=== PATIENT | female | born 1995 | race Caucasian/White ===

== ENCOUNTER 2020-05-04 22:21 | Emergency (ER) | payer SELFPAY ==
--- NOTE | ~2020-05-04 | CT_ITS ---
EXAMINATION: CT abdomen pelvis w con DATE: 05/05/2020 00:13 INDICATION: Nausea and vomiting. Diarrhea. Blood in stool. TECHNIQUE: Computed tomography (CT) of the abdomen and pelvis was performed with 100 mL Omnipaque 350 intravenous contrast. Automated exposure control and iterative reconstruction technique were employe d. The dose-length product was 350.20 mGy-cm. COMPARISON: None. FINDINGS: The visualized portions of the lung bases are clear without pneumonia or pleural effusion. The heart size is normal. No pericardial effusion. The liver, gallbladder, spleen, pancreas, adrenal glands, and left kidney are normal. There is a 5 mm cyst in right kidney. There are no dilated loops of bowel. The appendix is normal. There are no pathologically enlarged lymph nodes. There is trace pe lvic ascites, likely physiologic. There is mild lumbar spondylosis. IMPRESSION: 1. No etiology for the patient's symptoms. Reviewed, dictated and finalized at location B. [employer]
[2020-05-04 22:26] VITALS: BP 113/92; PULSE 73; RESP 15; TEMP 36.4; O2SAT 99
--- NOTE | 2020-05-04 22:40 | ED.ABDPAIN ---
HPI - Abdominal Pain General Chief Complaint: Abdominal Pain Stated Complaint: abdominal pain Time Seen by Provider: 05/04/20 22:40 Source: patient and family Mode of arrival: ambulatory Limitations: no limitations History of Present Illness HPI narrative: The patient is a 24 yo female with a hx of endometriosis, who presents for evaluation of abdominal pain and diarrhea. Pt reporting diarrhea with small amount of blood present over past 48 hours. No mucus present. Pt did have anal sex with her and has had worsened bleeding tonight. She is reporting rectal pain. Pt with vomiting three days ago and today; reporting constant nausea. Pt reports feeling febrile with chills. Pt denies chest pain, cough, dyspnea, weakness or dizziness. No hematuria or dysuria. Pt currently menstruating. No lower abdominal cramping or pain. Pt with history of chlamydia as as teenager; treated. No current vaginal discharge. Related Data Allergies Allergy/AdvReac Type Severity Reaction Status Date / Time latex Allergy Swelling Verified 05/04/20 23:41 Review of Systems Review of Systems: Narrative: CONSTITUTIONAL: Reports feeling febrile with chills ENT: Denies rhinorrhea, congestion, sore throat, or otalgia. CARDIOVASCULAR: Denies chest pain, palpitations, or edema. RESPIRATORY: Denies cough or dyspnea. GASTROINTESTINAL: Reporting abd pain, nausea and vomiting GENITOURINARY: Denies dysuria or hematuria. SKIN: Denies rash or itching. MUSCULOSKELETAL: Denies back pain, joint pain, or myalgia. NEUROLOGIC: Denies headache, numbness, or weakness. [facility] Past Medical History Medical History (Updated 05/05/20 @ 00:53 by Court Bess MD) Endometriosis Surgical History Surgical History (Updated 05/04/20 @ 22:57 by Court Bess MD) No pertinent past surgical history Social History Social History (Updated 05/04/20 @ 22:57 [address] Court Bess MD) Smoking status: Never smoker Substance use: never Gender identity (if verbalized by the patient): Female Exam Narrative: Exam Narrative: GENERAL: Awake, alert, conversant HEAD: Normocephalic, atraumatic. EYES: PERRLA and EOMI. ENT: Nares clear, no rhinorrhea or epistaxis. Mucous membranes moist. NECK: Supple. CHEST: No respiratory distress, breathing even and non labored HEART: Regular rate, sinus rhythm : Rectal exam: no fissures, mild tenderness, no ecchymoses, no melena ABDOMEN:Non distended, mild diffuse tenderness all four quadrants, no rebound, rigidity or guarding EXTREMITIES: Normal range of motion. No edema. SKIN: Warm, dry, no rash. NEURO:No focal deficits. Alert and oriented x3 Course Vital Signs Vital signs: Vital Signs Temperature 36.4 C 05/04/20 22:26 Pulse Rate 73 05/04/20 22:26 Respiratory Rate 15 05/04/20 22:26 Blood Pressure 113/92 H 05/04/20 22:26 Pulse Oximetry 99 05/04/20 22:26 Temperature 36.4 C 05/04/20 22:26 Pulse Rate 73 05/04/20 22:26 Respiratory Rate 15 05/04/20 22:26 Blood Pressure 113/92 H 05/04/20 22:26 Pulse Oximetry 99 05/04/20 22:26 MDM - Abdominal Pain MDM Narrative Medical decision making narrative: Patient presented for evaluation of abdominal pain. She has had some associated vomiting and diarrhea with some blood present in the stool. Patient also with recent anal intercourse from spouse that seem to exacerbate symptoms. Patient was concerned she perhaps had a tear or rectal injury thus she sought care in our emergency department. At time of assessment, ABCs are intact. Vital signs are stable. Abdominal exam notable for mild, diffuse tenderness throughout, no severe tenderness, no rigidity, rebound or guarding. Rectal exam shows no fissures, tears. No gross bloody discharge. Patient currently menstruating, second day of cycle which she states is very heavy, not having any other urinary symptoms, I did speak with the patient regarding obtaining a urinary catheterization for I more reliable urinal
[2020-05-04] MEDS: SODIUM CHLORIDE 0.9% IV 1,000 ML 999 ML IV CONT (23:36)
[2020-05-04 23:38] LABS: Basophils Percent Auto 0.2 % (0.2-1.2); Eosinophils Absolute Auto 0.1 K/mm3 (0-0.3); Eosinophils Percent Auto 0.6 % (0-4.4); Hematocrit 40.5 % (37.0-47.0); Hemoglobin 13.9 g/dL (12.0-15.0); Immature Granulocyte Absolute 0.02 K/mm3 (0.00-0.031); Immature Granulocyte Percent A 0.2 % (0-0.5); Lymphocytes Absolute Auto 2.38 K/mm3 (0.9-3.2); Lymphocytes Percent Auto 25.1 % (18.3-44.2); Mean Corpuscular HGB Conc 34.3 g/dl (32-36); Mean Corpuscular Hemoglobin 31.1 pg (26-34); Mean Corpuscular Volume 90.6 fl (80-100); Mean Platelet Volume 10.3 fl (7.4-10.4); Monocytes Absolute Auto 0.6 K/mm3 (0.1-0.6); Monocytes Percent Auto 5.8 % (2.6-8.5); Neutrophils Absolute Auto 6.5 K/mm3 (1.3-6.7); Neutrophils Percent Auto 68.1 % (45.5-73.1); Platelet Count Result 321 k/mm3 (150-375); Red Blood Count 4.47 M/mm3 (4.2-5.4); Red Cell Distribution Width 12.5 % (11.5-14.5); White Blood Count 9.5 K/mm3 (4.5-10.0)
[2020-05-04] MEDS: MORPHINE SULFATE (*CRX) 4 MG/ML INJ IV PUSH (23:38)
[2020-05-04] MEDS: ONDANSETRON INJ 4 MG/2 ML VIAL IV PUSH (23:38)
[2020-05-04 23:52] LABS: Alanine Aminotransferase 20 U/L (4-35); Albumin Level 4.5 g/dL (3.5-5.1); Alkaline Phosphatase 73 U/L (38-126); Anion Gap 12 mmol/L (8-16); Aspartate Amino Transferase 24 U/L (14-36); Bilirubin,Total 0.4 mg/dL (0.2-1.3); Blood Urea Nitrogen 9 mg/dL (7-17); Calcium 9.5 mg/dL (8.4-10.2); Carbon Dioxide 22 mmol/L (22-30); Chloride 106 mmol/L (98-107); Estimated CRCL calculation 81 ml/min; Estimated Glomerular Filt Rate > 60; Glucose 104 mg/dL (65-105); Lipase 60 U/L (23-300); Potassium 3.5 mmol/L (3.4-5.0); Sodium 140 mmol/L (137-145)
[2020-05-05 00:22] LABS: Appearance Urine Turbid (Clear); Color Urine Red (Yellow)
[2020-05-05 00:23] LABS: Glucose Urine UA Unable to determine mg/dL (Negative); Ketones Urine Unable to determine mg/dL (Negative); Protein Urine Unable to determine mg/dL (Negative); pH Urine Unable to determine (5.0-9.0)
[2020-05-05 00:24] LABS: Add Urine Microscopic? YES; Bilirubin Urine Unable to determine (Negative); Blood Urine 3+ (Negative); Leukocyte Esterase Ur Unable to determine LEU/UL (Negative); Nitrate Urine Unable to determine (Negative); Urobilinogen Urine Unable to determine mg/dL (<2.0)
[2020-05-05 00:25] LABS: RBC Urine >75 /hpf (0-2)
[2020-05-05 00:32] LABS: Bacteria Urine Unable to determine /hpf; Specific Grav Ur 1.021 (1.001-1.035); Squamous Epithelial Cell Urine Unable to determine /hpf (Few)
[2020-05-05 01:13] VITALS: BP 116/78; PULSE 73; RESP 16; O2SAT 97
== END 2020-05-05 01:10 | disposition home or self-care (01) ==
PROVIDERS: Emergency Provider Emergency Medicine
DX: K52.9 Noninfective gastroenteritis and colitis, unspecified (principal); N80.9 Endometriosis, unspecified
CPT/HCPCS: 36415; 74177; 80053; 81001; 81025; 83690; 85025; 87077; 87086; 87088; 96361; 96374; 96375; 99284; J2270; J2405; J7030; Q9967

== ENCOUNTER 2020-06-13 00:22 | Emergency (ER) | payer SELFPAY ==
[2020-06-13 00:26] VITALS: BP 110/97; PULSE 86; RESP 16; TEMP 36.7; O2SAT 99
[2020-06-13] MEDS: predniSONE 20 MG TABLET 60 MG PO (00:41)
[2020-06-13] MEDS: FAMOTIDINE 20 MG TABLET PO (00:41)
[2020-06-13] MEDS: diphenhydrAMINE HCl CAP 25 MG CAPSULE PO (00:41)
--- NOTE | 2020-06-13 00:47 | ED.ALLEREA ---
HPI - Allergic Reaction General Chief complaint: Allergic Reaction Stated complaint: i think i am having an allergic rxn Time Seen by Provider: 06/13/20 00:27 Source: patient Mode of arrival: ambulatory Limitations: no limitations History of Present Illness HPI narrative: This patient is a 25 year old female who presents for evaluation of rash. She developed rash to her arms, legs and torso 1 week ago. She reports she has had a rash to face for 3 days. She describes the rash as itching and burning. She reports taking antibiotics over 1 months ago, but she had finished the antibiotics when she developed the rash. She has been using oatmeal cream and benadryl. She denies any new exposures. She does reports she recently moved 3 days ago . Her mother reports her previous residence was horrible . She denies fever, chills, sore throat, runny nose, difficulty breath or oral lesions. Related Data Allergies Allergy/AdvReac Type Severity Reaction Status Date / Time latex Allergy Swelling Verified 05/04/20 23:41 Review of Systems Review of Systems: All systems reviewed & are unremarkable except as noted in HPI and below PMFSH Past Medical History Medical History (Updated 06/13/20 @ 00:54 by Yaz Hugo MD) Endometriosis Surgical History Surgical History (Updated 05/04/20 @ 22:57 [address] Court Bess MD) No pertinent past surgical history Social History Social History (Updated 05/04/20 @ 22:57 by Court Bess MD) Smoking status: Never smoker Substance use: never Gender identity (if verbalized by the patient): Female Exam Const: General: no acute distress and alert Orientation/consciousness: patient oriented x3 HENMT: Face and sinus: normal facial exam and face symmetric Eyes: EOM: EOMs intact bilaterally Resp: Effort & Inspection: normal respiratory effort and no retractions Auscultation: clear to auscultation bilaterally Cardio: Rate: regular rate Rhythm: regular rhythm Heart sounds: no murmurs GI: GI Palp: Yes Soft to palpation, No Tenderness to palpation present (GI) and No Guarding due to palpation present (GI) Auscultation: normal bowel sounds Skin: Other: rash present Neuro: General: patient oriented x3 and moves all extremities Extrem: General: no pedal edema Course Reevaluation(s) Reevaluation #1: Patient has rash to her face. She has not airway issues. I discussed with the plan to treat with steroid cream and she will need to follow up with PCP if rash continues. Date: 06/13/20 Time: 02:00 Vital Signs Vital signs: Vital Signs Temperature 98.0 F 06/13/20 00:26 Pulse Rate 86 06/13/20 00:26 Respiratory Rate 16 06/13/20 00:26 Blood Pressure 110/97 H 06/13/20 00:26 Pulse Oximetry 99 06/13/20 00:26 Temperature 98.2 F 06/13/20 02:40 Pulse Rate 79 06/13/20 02:40 Respiratory Rate 16 06/13/20 02:40 Blood Pressure 116/75 06/13/20 02:40 Pulse Oximetry 99 06/13/20 02:40 Discharge Plan Discharge Clinical Impression: Dermatitis, unspecified Patient Disposition: Home, Self-Care Condition: Stable Instructions: Antibiotic Form, Acute Rash (ED) Additional Instructions: Monitor what could be causing your rash. Take allergy medication such as benadryl , claritin or zyrtec for itching and rash. Use steroid cream. REturn if you develop mouth or tongue swelling, difficulty breathing or worsening. symptoms. Prescriptions: New hydrocortisone 2.5 % cream 1 applic topical BID Qty: 28 RF: 0 famotidine [Pepcid] 20 mg tablet 20 mg PO DAILY Qty: 14 RF: 0 prednisone 50 mg tablet 50 mg PO DAILY Qty: 5 RF: 0 loratadine [Claritin] 10 mg tablet 10 mg PO DAILY PRN (Reason: allergy symptoms) Qty: 10 RF: 0 No Action metronidazole [Flagyl] 500 mg tablet 500 mg PO Q12H 5 Days Qty: 10 RF: 0 ciprofloxacin HCl 500 mg tablet 500 mg PO Q12H 5 Days Qty: 10 RF: 0 metoclopramide HCl [Reglan] 10 mg
[2020-06-13 02:40] VITALS: BP 116/75; PULSE 79; RESP 16; TEMP 36.8; O2SAT 99
== END 2020-06-13 02:42 | disposition home or self-care (01) ==
PROVIDERS: Emergency Provider General Practice
DX: L30.9 Dermatitis, unspecified (principal); N80.9 Endometriosis, unspecified
CPT/HCPCS: 99283; A9270; J7512

== ENCOUNTER 2020-06-24 21:53 | Emergency (ER) | payer SELFPAY ==
[2020-06-24 21:55] VITALS: BP 128/71; PULSE 76; RESP 18; TEMP 36.8; O2SAT 100
--- NOTE | 2020-06-24 22:44 | ED.GENADULT ---
HPI - General Adult General Chief complaint: Wound/Laceration Stated complaint: possible mrsa Time Seen by Provider: 06/24/20 22:34 Source: patient Mode of arrival: ambulatory Limitations: no limitations History of Present Illness HPI narrative: Patient is 25 years old white female presents with a pimple on the right lower quadrant started 2 days ago. Patient was able to squeeze the pimple and telling me that she got a lot of green pus coming out of it. Patient denies fever, chills, nausea, vomiting. Patient reported that her was diagnosed of MRSA weeks ago. Related Data Allergies Allergy/AdvReac Type Severity Reaction Status Date / Time latex Allergy Swelling Verified 05/04/20 23:41 Review of Systems Review of Systems: Narrative: CONSTITUTIONAL: Denies fever, chills, or sweats. EYES: Denies visual changes, redness, or discharge. ENT: Denies rhinorrhea, congestion, sore throat, or otalgia. CARDIOVASCULAR: Denies chest pain, palpitations, or edema. RESPIRATORY: Denies cough or dyspnea. GASTROINTESTINAL: Denies abdominal pain, nausea, vomiting, or diarrhea. GENITOURINARY: Denies dysuria or hematuria. SKIN: Denies rash or itching. MUSCULOSKELETAL: Denies back pain, joint pain, or myalgia. NEUROLOGIC: Denies headache, numbness, or weakness. PSYCHIATRIC: Denies anxiety or depression. PMFSH Past Medical History Medical History Endometriosis Surgical History Surgical History No pertinent past surgical history Social History Social History Smoking status: Never smoker Substance use: never Gender identity (if verbalized by the patient): Female Exam Narrative: Exam Narrative: General appearance: Well-developed, well-nourished Skin: Normal color, right lower quadrant showed a 2 mm pimple, surrounded by 1 cm erythema, no subcutaneous induration, no fluctuation, slightly tender. Chest and respiratory: Airway patent, no respiratory distress, no accessory muscle use Heart: Regular rate/rhythm Abdomen: Soft, nontender, no organomegaly, quiet bowel sounds Neurologic: Alert and oriented ?3, Course Course Emergency Course: Stable Vital Signs Vital signs: Vital Signs Temperature 36.8 C 06/24/20 21:55 Pulse Rate 76 06/24/20 21:55 Respiratory Rate 18 06/24/20 21:55 Blood Pressure 128/71 06/24/20 21:55 Pulse Oximetry 100 06/24/20 21:55 Temperature 36.8 C 06/24/20 21:55 Pulse Rate 76 06/24/20 21:55 Respiratory Rate 18 06/24/20 21:55 Blood Pressure 128/71 06/24/20 21:55 Pulse Oximetry 100 06/24/20 21:55 Medical Decision Making MDM Narrative Medical decision making narrative: Patient had a small boil and was able to squeeze it and got all the pus out of it. Currently 1 cm cellulitis at the right lower abdomen. Differential Diagnosis Differential Diagnosis: Cellulitis Vital Signs Vital Signs: Vital Signs Temperature 36.8 C 06/24/20 21:55 Pulse Rate 76 06/24/20 21:55 Respiratory Rate 18 06/24/20 21:55 Blood Pressure 128/71 06/24/20 21:55 Pulse Oximetry 100 06/24/20 21:55 Temperature 36.8 C 06/24/20 21:55 Pulse Rate 76 06/24/20 21:55 Respiratory Rate 18 06/24/20 21:55 Blood Pressure 128/71 06/24/20 21:55 Pulse Oximetry 100 06/24/20 21:55 Critical Care Time Critical Care Time Critical Care Time: No Discharge Plan Discharge Clinical Impression: Bacterial skin infection Patient Disposition: Home, Self-Care Condition: Stable Instructions: Cellulitis (ED) Additional Instructions
== END 2020-06-24 23:07 | disposition home or self-care (01) ==
PROVIDERS: Emergency Provider Emergency Medicine
DX: L03.311 Cellulitis of abdominal wall (principal); B96.89 Other specified bacterial agents as the cause of diseases classified elsewhere; N80.9 Endometriosis, unspecified
CPT/HCPCS: 99283

== ENCOUNTER 2020-07-09 13:15 | Emergency (ER) | payer SELFPAY ==
[2020-07-09 13:21] VITALS: BP 133/63; PULSE 76; RESP 18; TEMP 36.3; O2SAT 100
[2020-07-09] MEDS: diazePAM (*CRX) 5 MG TABLET PO (13:34)
[2020-07-09] MEDS: IBUPROFEN 600 MG TABLET PO (13:34)
--- NOTE | 2020-07-09 13:39 | ED.GENADULT ---
HPI - General Adult General Chief complaint: Wound/Laceration Stated complaint: Wound Infection Time Seen by Provider: 07/09/20 13:27 Source: patient and old records reviewed Mode of arrival: ambulatory Limitations: no limitations History of Present Illness HPI narrative: Patient is a 25-year-old female who presents with wound to the right lower abdomen has been present for over a week was seen in the in the emergency department evaluated started on antibiotics notes that she took the antibiotics completed them however the lesion has increased in size patient notes moderate aching pain worse with touch and activity patient presents per private vehicle in no distress upon arrival Related Data Allergies Allergy/AdvReac Type Severity Reaction Status Date / Time latex Allergy Swelling Verified 07/09/20 13:30 Review of Systems Review of Systems: All systems reviewed & are unremarkable except as noted in HPI and below PMFSH Past Medical History Medical History Endometriosis Surgical History Surgical History No pertinent past surgical history Social History Social History Smoking status: Never smoker Substance use: never Gender identity (if verbalized by the patient): Female Exam Narrative: Exam Narrative: GENERAL: Well-appearing, well-nourished, and in no acute distress. HEAD: Normocephalic, atraumatic. EYES: PERRLA and EOMI. ENT: Nares clear, no rhinorrhea or epistaxis. Mucous membranes moist. CHEST: Clear to auscultation. No respiratory distress. No wheezes rales or rhonchi HEART: Regular rate and rhythm. No murmur heard. Normal peripheral pulses. ABDOMEN: Soft, nontender, nondistended EXTREMITIES: Normal range of motion. No edema. SKIN: Warm, dry, no rash. Patient with 3 cm red tender swollen lesion right lower abdomen along the belt line NEURO: No focal deficits. Alert and oriented x3. PSYCH: Normal mood and affect. Course Course Emergency Course: Patient had I&D of abscess in the emergency department wound cultures were obtained there were no complications with the procedure patient will follow with primary care given reasons to return Vital Signs Vital signs: Vital Signs Temperature 97.4 F L 07/09/20 13:21 Pulse Rate 76 07/09/20 13:21 Respiratory Rate 18 07/09/20 13:21 Blood Pressure 133/63 07/09/20 13:21 Pulse Oximetry 100 07/09/20 13:21 Temperature 97.4 F L 07/09/20 13:21 Pulse Rate 76 07/09/20 13:21 Respiratory Rate 18 07/09/20 13:21 Blood Pressure 133/63 07/09/20 13:21 Pulse Oximetry 100 07/09/20 13:21 Procedures Abscess I/D abdomen: Date of Incision: 07/09/20 Time of Incision: 14:44 Side (if applicable): right Local Anesthetic: lidocaine 1% Technique: incised with #11 blade Amount of fluid expressed (mL): 4 Irrigation: Yes Packing used?: iodoform I&D Results: Pus and Blood Complications: pain Medical Decision Making MDM Narrative Medical decision making narrative: Patient in the room no distress Vital Signs Vital Signs: Vital Signs Temperature 97.4 F L 07/09/20 13:21 Pulse Rate 76 07/09/20 13:21 Respiratory Rate 18 07/09/20 13:21 Blood Pressure 133/63 07/09/20 13:21 Pulse Oximetry 100 07/09/20 13:21 Temperature 97.4 F L 07/09/20 13:21 Pulse Rate 76 07/09/20 13:21 Respiratory Rate 18 07/09/20 13:21 Blood Pressure 133/63 07/09/20 13:21 Pulse Oximetry 100 07/09/20 13:21 Discharge Plan Discharge Clinical Impression: Abscess Patient Disposition: Home, Self-Care Condition: Stable Instructions: Antibiotic Form, Abscess (ED) Additional Instructions: Follow up with primary care in the next 2-3 days for re-evaluation and packing removal if placed take antibiotics as
[2020-07-09] MEDS: LIDOCAINE HCL 1% LOCAL INJ 20 ML VIAL (14:53)
[2020-07-09 15:07] VITALS: BP 125/65; PULSE 72; RESP 16; O2SAT 98
== END 2020-07-09 15:05 | disposition home or self-care (01) ==
PROVIDERS: Emergency Provider Emergency Medicine
DX: L02.211 Cutaneous abscess of abdominal wall (principal); N80.9 Endometriosis, unspecified
CPT/HCPCS: 10061; 87070; 87075; 87147; 87186; 87205; 99283; A9270

== ENCOUNTER 2020-11-16 10:36 | Emergency (ER) | payer SELFPAY ==
--- NOTE | ~2020-11-16 | US_ITS ---
EXAMINATION: US OB <=14 wk fetus w TV DATE: 11/16/2020 11:41 INDICATION: Right adnexal pain and vaginal bleeding during first trimester . TECHNIQUE: Real-time pelvic ultrasound utilizing both a transvaginal and transabdominal probe was pe rformed. The interpreting radiologist was not present for the study. COMPARISON: CT dated 05/05/2020 FINDINGS: The uterus measures 8.9 x 6.4 x 3.8 cm. Partial septate uterus better appreciated on prior CT. The en dometrial complex measures 13 mm in thickness at the left side of the fundus and 12 mm at the right s ester of the fundus. No evident intrauterine gestational sac identified. The right ovary measures 2.3 x 1.8 x 1.8 cm. The left ovary measures 2.3 x 1.5 x 1.6 cm. There is no free fluid in the pelvis. IMPRESSION: 1. Anatomic variant partial septate uterus with no evident intrauterine gestational sac. Differential would include early , failed or less likely ectopic . Correlate with ser ial beta-hCG levels. Reviewed, dictated and finalized at location A. IMPRESSION: 1. Anatomic variant partial septate uterus with no evident intrauterine gestati onal sac. Differential would include early , failed or less likely ectopic . Correlate with serial beta-hCG levels.
[2020-11-16 10:40] VITALS: BP 128/79; PULSE 69; RESP 16; TEMP 36.2; O2SAT 100
[2020-11-16] MEDS: SODIUM CHLORIDE 0.9% IV 1,000 ML 999 ML IV CONT (11:04)
[2020-11-16 11:13] LABS: Basophils Percent Auto 0.3 % (0.2-1.2); Eosinophils Absolute Auto 0.1 K/mm3 (0-0.3); Eosinophils Percent Auto 1.9 % (0-4.4); Hematocrit 43.2 % (37.0-47.0); Hemoglobin 14.3 g/dL (12.0-15.0); Immature Granulocyte Absolute 0.03 K/mm3 (0.00-0.031); Immature Granulocyte Percent A 0.4 % (0-0.5); Lymphocytes Absolute Auto 2.26 K/mm3 (0.9-3.2); Lymphocytes Percent Auto 30.7 % (18.3-44.2); Mean Corpuscular HGB Conc 33.1 g/dl (32-36); Mean Corpuscular Hemoglobin 30.4 pg (26-34); Mean Corpuscular Volume 91.7 fl (80-100); Mean Platelet Volume 10.5 fl (7.4-10.4); Monocytes Absolute Auto 0.4 K/mm3 (0.1-0.6); Monocytes Percent Auto 5.8 % (2.6-8.5); Neutrophils Absolute Auto 4.5 K/mm3 (1.3-6.7); Neutrophils Percent Auto 60.9 % (45.5-73.1); Platelet Count Result 299 k/mm3 (150-375); Red Blood Count 4.71 M/mm3 (4.2-5.4); Red Cell Distribution Width 12.9 % (11.5-14.5); White Blood Count 7.4 K/mm3 (4.5-10.0)
[2020-11-16 11:18] LABS: Alanine Aminotransferase 17 U/L (4-35); Albumin Level 4.7 g/dL (3.5-5.1); Alkaline Phosphatase 50 U/L (38-126); Anion Gap 10 mmol/L (8-16); Aspartate Amino Transferase 24 U/L (14-36); Bilirubin,Total 0.3 mg/dL (0.2-1.3); Blood Urea Nitrogen 9 mg/dL (7-17); Calcium 9.6 mg/dL (8.4-10.2); Carbon Dioxide 24 mmol/L (22-30); Chloride 105 mmol/L (98-107); Estimated CRCL calculation 84 ml/min; Estimated Glomerular Filt Rate > 60; Glucose 71 mg/dL (65-105); Potassium 3.9 mmol/L (3.4-5.0); Sodium 139 mmol/L (137-145)
[2020-11-16 11:20] LABS: Add Urine Microscopic? YES; Appearance Urine Clear (Clear); Bacteria Urine Trace /hpf; Bilirubin Urine Negative (Negative); Blood Urine 2+ (Negative); Color Urine Yellow (Yellow); Glucose Urine UA Negative (Negative); Ketones Urine Negative (Negative); Leukocyte Esterase Ur Negative LEU/UL (Negative); Mucus Urine Rare /lpf; Nitrate Urine Negative (Negative); Protein Urine Negative (Negative); RBC Urine 0-2 /hpf (0-2); Specific Grav Ur 1.014 (1.001-1.035); Squamous Epithelial Cell Urine Many /hpf (Few); Urobilinogen Urine Negative mg/dL (<2.0); WBC Urine 0-3 /hpf
[2020-11-16 11:34] LABS: Beta HCG Quantitative 115.16 mIU/ML
--- NOTE | 2020-11-16 13:35 | PC.NURSE ---
called lab and talked to Arleen, she confirmed we did not need the confirmation tube on pt. Segundo Bejarano was notified.
--- NOTE | 2020-11-16 13:46 | ED.GENADULT ---
HPI - General Adult General Chief complaint: Vaginal Bleeding Stated complaint: + test/Abd Pain and bleeding Time Seen by Provider: 11/16/20 10:40 Source: patient and RN notes reviewed Mode of arrival: ambulatory Limitations: no limitations History of Present Illness HPI narrative: Patient is a 25-year-old female who presents with vaginal bleeding and cramping which has been present for the last 2 weeks patient notes positive test at home patient notes history of G3, P0. Patient notes history of ectopic with oophorectomy. Patient does not currently have a milk bottler. Patient's been having some light bleeding and cramping is noted since the onset of symptoms. Patient denies fever vomiting or other concerns at this time on arrival she does not appear uncomfortable or distressed Related Data Allergies Allergy/AdvReac Type Severity Reaction Status Date / Time latex Allergy Swelling Verified 11/16/20 10:54 Review of Systems Review of Systems: All systems reviewed & are unremarkable except as noted in HPI and below PMFSH Past Medical History Medical History (Updated 11/16/20 @ 14:02 by Naresh Bejarano PA-C) Ectopic Endometriosis Surgical History Surgical History H/O unilateral oophorectomy No pertinent past surgical history Social History Social History Smoking status: Never smoker Substance use: never Gender identity (if verbalized by the patient): Female Exam Narrative: Exam Narrative: GENERAL: Well-appearing, well-nourished, and in no acute distress. HEAD: Normocephalic, atraumatic. EYES: PERRLA and EOMI. ENT: Nares clear, no rhinorrhea or epistaxis. Mucous membranes moist. CHEST: Clear to auscultation. No respiratory distress. No wheezes rales or rhonchi HEART: Regular rate and rhythm. No murmur heard. Normal peripheral pulses. ABDOMEN: Soft, nontender, nondistended EXTREMITIES: Normal range of motion. No edema. SKIN: Warm, dry, no rash. NEURO: No focal deficits. Alert and oriented x3. PSYCH: Normal mood and affect. Course Course Emergency Course: Patient evaluated in the emergency department will be referred to gynecology for further evaluation patient agrees with this plan and will set up for her appointment she is aware of discussion with on-call milk bottler and repeat testing in 48 hours for serum quantitative hCG patient is ABCs and vital signs intact and stable patient is afebrile nontoxic-appearing no distress and felt appropriate for outpatient reevaluation Consultations Consultation #1: Case discussed with Dr. Augustine who would like the patient to set up for reevaluation in clinic repeat serum hCG quantitative in 48 hours and to be discharged with ectopic precaution Date: 11/16/20 Vital Signs Vital signs: Vital Signs Temperature 97.2 F L 11/16/20 10:40 Pulse Rate 69 11/16/20 10:40 Respiratory Rate 16 11/16/20 10:40 Blood Pressure 128/79 11/16/20 10:40 Pulse Oximetry 100 11/16/20 10:40 Temperature 97.2 F L 11/16/20 10:40 Pulse Rate 69 11/16/20 10:40 Respiratory Rate 16 11/16/20 10:40 Blood Pressure 128/79 11/16/20 10:40 Pulse Oximetry 100 11/16/20 10:40 Medical Decision Making MDM Narrative Medical decision making narrative: Patient with early will be following with mend worker for repeat evaluation given reasons to return such as unilateral worsening pain considering for ectopic given her history patient agrees with this plan Vital Signs Vital Signs: Vital Signs Temperature 97.2 F L 11/16/20 10:40 Pulse Rate 69 11/16/20 10:40 Respiratory Rate 16 11/16/20 10:40 Blood Pressure 128/79 11/16/20 10:40 Pulse Oximetry 100 11/16/20 10:40 Temperature 97.2 F L 11/16/20 10:40 Pulse Rate 69 11/16/20 10:40 Respiratory Rate 16 11/16/20 10:40 Blood Pressure
[2020-11-16 14:19] VITALS: BP 92/59; PULSE 72; RESP 15; O2SAT 100
== END 2020-11-16 14:21 | disposition home or self-care (01) ==
PROVIDERS: Emergency Medicine Emergency Medical Services; Emergency Provider Emergency Medicine
DX: O26.891 Other specified pregnancy related conditions, first trimester (principal); R10.9 Unspecified abdominal pain; Z3A.01 Less than 8 weeks gestation of pregnancy
CPT/HCPCS: 36415; 76801; 76817; 80053; 81001; 81025; 84702; 85025; 85461; 96360; 99284; J7030

== ENCOUNTER 2020-11-18 10:55 | Outpatient (CLI) | payer SELFPAY | END 2020-11-18 10:56 | disposition home or self-care (01) | PROVIDERS: Visit Provider Obstetrics & Gynecology Gynecology | DX: Z34.90 Encounter for supervision of normal pregnancy, unspecified, unspecified trimester (principal); Z3A.00 Weeks of gestation of pregnancy not specified | CPT/HCPCS: 36415; 84702 ==

== ENCOUNTER 2020-11-20 12:19 | Outpatient (CLI) | payer SELFPAY ==
[2020-11-20 12:59] LABS: Beta HCG Quantitative 317.81 mIU/ML
== END 2020-11-20 12:20 | disposition home or self-care (01) ==
PROVIDERS: Visit Provider Obstetrics & Gynecology Gynecology
DX: O20.0 Threatened abortion (principal); Z3A.00 Weeks of gestation of pregnancy not specified
CPT/HCPCS: 36415; 84702

== ENCOUNTER 2020-11-30 08:33 | Outpatient (RCR) | payer SELFPAY | END 2021-02-20 23:59 | disposition home or self-care (01) | LOC: ANHLAB 08:33 | PROVIDERS: Visit Provider Obstetrics & Gynecology Gynecology | DX: O20.0 Threatened abortion (principal); Z3A.00 Weeks of gestation of pregnancy not specified | CPT/HCPCS: 36415; 84702 ==

== ENCOUNTER 2020-12-02 07:44 | Emergency (ER) | payer MEDICAID, SELFPAY ==
--- NOTE | ~2020-12-02 | US_ITS ---
EXAMINATION: US OB <= 14 weeks fetus DATE: 12/02/2020 09:05 INDICATION: Left adnexal pain. First trimester. TECHNIQUE: Real-time transabdominal pelvic ultrasound was performed. COMPARISON: Ultrasound 11/16/2020 FINDINGS: The uterus measures 8.0 x 3.3 x 6.3 cm. The uterus is septate. There is no visible intrauterine gesta tional sac. The right ovary measures 2.5 x 1.8 x 2.1 cm. The left ovary measures 3.0 x 2.2 x 2.0 cm. There is normal vascular flow in the ovaries. There is no free fluid in the pelvis. IMPRESSION: 1. No visible intrauterine gestational sac, which may be normal in early . Spontaneous abor tion and ectopic are not excluded. Serial beta hCGs are recommended. 2. Septate uterus. Reviewed, dictated and finalized at location A. IMPRESSION: 1. No visible intrauterine gestational sac, which may be normal in early pregn kemar. Spontaneous and ectopic are not excluded. Serial beta hCGs are recommended. 2. Septate uterus.
[2020-12-02 07:55] VITALS: BP 119/62; PULSE 68; RESP 16; TEMP 37; O2SAT 99
[2020-12-02 08:32] LABS: Basophils Percent Auto 0.3 % (0.2-1.2); Eosinophils Absolute Auto 0.1 K/mm3 (0-0.3); Hematocrit 37.5 % (37.0-47.0); Hemoglobin 12.5 g/dL (12.0-15.0); Immature Granulocyte Absolute 0.15 K/mm3 (0.00-0.031); Immature Granulocyte Percent A 1.4 % (0-0.5); Lymphocytes Absolute Auto 2.13 K/mm3 (0.9-3.2); Lymphocytes Percent Auto 19.2 % (18.3-44.2); Mean Corpuscular HGB Conc 33.3 g/dl (32-36); Mean Corpuscular Volume 89.9 fl (80-100); Mean Platelet Volume 10.3 fl (7.4-10.4); Monocytes Absolute Auto 0.7 K/mm3 (0.1-0.6); Monocytes Percent Auto 5.9 % (2.6-8.5); Neutrophils Percent Auto 72.2 % (45.5-73.1); Platelet Count Result 278 k/mm3 (150-375); Red Blood Count 4.17 M/mm3 (4.2-5.4); Red Cell Distribution Width 12.8 % (11.5-14.5); White Blood Count 11.1 K/mm3 (4.5-10.0)
[2020-12-02 08:40] LABS: Anion Gap 8 mmol/L (8-16); Blood Urea Nitrogen 6 mg/dL (7-17); Calcium 9.2 mg/dL (8.4-10.2); Carbon Dioxide 24 mmol/L (22-30); Chloride 104 mmol/L (98-107); Estimated CRCL calculation 90 ml/min; Estimated Glomerular Filt Rate > 60; Glucose 91 mg/dL (65-105); Potassium 3.9 mmol/L (3.4-5.0); Sodium 136 mmol/L (137-145)
[2020-12-02 09:45] VITALS: BP 105/69; PULSE 85; RESP 16; O2SAT 100
[2020-12-02 10:07] LABS: Add Urine Microscopic? YES; Appearance Urine Clear (Clear); Bilirubin Urine Negative (Negative); Blood Urine 2+ (Negative); Color Urine Colorless (Yellow); Glucose Urine UA Negative (Negative); Ketones Urine Negative (Negative); Leukocyte Esterase Ur Negative LEU/UL (Negative); Nitrate Urine Negative (Negative); Protein Urine Negative (Negative); RBC Urine 0-2 /hpf (0-2); Specific Grav Ur 1.005 (1.001-1.035); Squamous Epithelial Cell Urine Moderate /hpf (Few); Urobilinogen Urine Negative mg/dL (<2.0); WBC Urine 0-3 /hpf
--- NOTE | 2020-12-02 10:16 | ED.FEMALEGU ---
HPI - Female Genitourinary General Chief complaint: Vaginal Bleeding Stated complaint: /bleeding Time Seen by Provider: 12/02/20 07:51 History of Present Illness HPI Narrative: Patient is a 25-year-old female who is a G4, P0 with history of ectopic and left salpingectomy who presents the ER with left lower quadrant pelvic pain. Patient known to be . She has been having her beta hCGs followed by Dr. Eason and they have been going up and appropriately. Patient reports little bit increase in bleeding and mucus discharge since pain increased last night. No loss of consciousness. No fevers or chills or sweats. She is on no blood thinners. Related Data Home Medications Medication Instructions Recorded Confirmed No Home Medications 12/02/20 12/02/20 Allergies Allergy/AdvReac Type Severity Reaction Status Date / Time latex Allergy Swelling Verified 12/02/20 07:59 Review of Systems Review of Systems: All systems reviewed & are unremarkable except as noted in HPI and below Respiratory: Respiratory: Denies cough and Denies dyspnea Gastrointestinal: Gastrointestinal: Reports abdominal pain, Denies nausea and Denies vomiting Genitourinary: Genitourinary: Reports abnormal vaginal bleeding, Denies nocturia, Denies dysuria and Reports vaginal discharge PMF Past Medical History Medical History (Updated 12/02/20 @ 12:24 by Tino Langford MD) Ectopic Endometriosis Surgical History Surgical History H/O unilateral oophorectomy No pertinent past surgical history Social History Social History Smoking status: Never smoker Substance use: never Gender identity (if verbalized by the patient): Female Exam Narrative: Exam Narrative: GENERAL: Well-appearing, well-nourished, and in no acute distress. HEAD: Normocephalic, atraumatic. ENT: Mucous membranes moist. CHEST: Clear to auscultation. No respiratory distress. HEART: Regular rate and rhythm. Normal peripheral pulses. ABDOMEN: Soft, tender palpation left lower quadrant, nondistended. : Scant vaginal discharge with mucus from cervical os. Cervix normal appearance. EXTREMITIES: Normal range of motion. No edema. SKIN: Warm, dry, no rash. NEURO: Alert and oriented x3. PSYCH: Normal mood and affect. Course Course Emergency Course: I discussed the case with patient's OB Dr. Augustine. Given poor rise in beta hCG with left pelvic pain and inability to visualize on ultrasound is recommended that the patient receive intramuscular methotrexate. Patient should be educated that she could have increased bleeding and cramping. She will need follow-up beta-hCG in 3 and 7 days which the office will arrange. Patient also should discontinue her vitamins and folic acid. Vital Signs Vital signs: Vital Signs Temperature 98.6 F 12/02/20 07:55 Pulse Rate 68 12/02/20 07:55 Respiratory Rate 16 12/02/20 07:55 Blood Pressure 119/62 12/02/20 07:55 Pulse Oximetry 99 12/02/20 07:55 Temperature 98.6 F 12/02/20 07:55 Pulse Rate 63 12/02/20 11:50 Respiratory Rate 16 12/02/20 11:50 Blood Pressure 124/68 12/02/20 11:50 Pulse Oximetry 97 12/02/20 11:50 MDM - Female Genitourinary Lab Data Result diagrams: 12/02/20 08:20 12/02/20 08:20 Labs: Lab Results 12/02/20 12/02/20 12/02/20 Range/Units 08:19 08:20 08:20 WBC 11.1 H (4.5-10.0) K/mm3 RBC 4.17 L (4.2-5.4) M/mm3 Hgb 12.5 (12.0-15.0) g/dL Hct 37.5 (37.0-47.0) % MCV 89.9 (80-100) fl MCH 30.0 (26-34) pg MCHC 33.3 (32-36) g/dl RDW 12.8 (11.5-14.5) % Plt Count 278 (150-375) k/mm3 MPV 10.3 (7.4-10.4) fl Immature Gran % (Auto) 1.4 H (0-0.5) % Neut % (Auto) 72.2 (45.5-73.1) % Lymph % (Auto) 19.2 (18.3-44.2) % [place] % (Auto) 5.9
[2020-12-02 10:45] LABS: Alanine Aminotransferase 19 U/L (4-35); Albumin Level 4.1 g/dL (3.5-5.1); Alkaline Phosphatase 55 U/L (38-126); Aspartate Amino Transferase 26 U/L (14-36); Bilirubin,Total 0.4 mg/dL (0.2-1.3)
[2020-12-02 11:00] LABS: Partial Thromboplastin Time 33.4 SECONDS (22.3-36.8)
[2020-12-02 11:05] LABS: INR 1.1; Prothrombin Time 13.8 Seconds (11.1-14.7)
[2020-12-02] MEDS: METHOTREXATE SODIUM/PF 50 MG/2 ML VIAL 40.5 MG IM ×2 (11:41)
[2020-12-02 11:50] VITALS: BP 124/68; PULSE 63; RESP 16; O2SAT 97
--- NOTE | 2020-12-07 13:26 | P.PNOB_ITS ---
[employer] [employer] - A/P Time Spent With Patient Time: Total time spent is greater than 50% in coordination of care (as documente d) at patient's floor/unit and/or counseling patient: Time with patient: 15 - [address] [employer]- PN:Beth Post-Op Subjective Date/time seen: 12/02/20 1215 Reviewed all HCG findings and current u/s. Discussed with patient and significant other options. Recommend MTX due to uncertain location of . Reviewed side effects of medicine and need to stop PNV and folic acid. Reviewed need for close follow up and timing of labs will be Tuesday 12/05 and 12/09. Patient to call for follow up in office. Reviewed reasons to return to ER especially heavy bleeding or increasing pain. Patient and sig other voiced undestanding [employer] [employer] - PN: Obj Data Meds/Results Radiology Results: ITS Impressions Ultrasound 12/02/20 09:14 IMPRESSION: 1. No visible intrauterine gestational sac, which may be normal in early . Spontaneous and ectopic are not excluded. Serial beta hCGs are recommended. 2. Septate uterus. Labs CBC & Chem 7: 12/02/20 08:20 12/02/20 08:20
== END 2020-12-02 12:46 | disposition home or self-care (01) ==
PROVIDERS: Emergency Provider Emergency Medicine
DX: O46.90 Antepartum hemorrhage, unspecified, unspecified trimester (principal); N80.9 Endometriosis, unspecified; Z3A.00 Weeks of gestation of pregnancy not specified
CPT/HCPCS: 36415; 76801; 80048; 80076; 81001; 84702; 85025; 85610; 85730; 96372; 99284; J9260

== ENCOUNTER 2021-01-07 07:55 | Outpatient (RCR) | payer OTHER, SELFPAY ==
[2020-12-16 17:11] LABS: Beta HCG Quantitative 275.34 mIU/ML
[2021-01-07 09:48] LABS: Beta HCG Quantitative 51.19 mIU/ML
== END 2021-03-09 23:59 | disposition home or self-care (01) ==
LOC: ANHLAB 07:55
PROVIDERS: Visit Provider Obstetrics & Gynecology Gynecology
DX: O02.81 Inappropriate change in quantitative human chorionic gonadotropin (hCG) in early pregnancy (principal); Z3A.00 Weeks of gestation of pregnancy not specified
CPT/HCPCS: 36415; 84702

== ENCOUNTER 2021-03-14 16:26 | Outpatient (CLI) | payer OTHER, SELFPAY ==
[2021-03-14 17:52] LABS: Beta HCG Quantitative < 2.39 mIU/ML
== END 2021-03-14 16:27 | disposition home or self-care (01) ==
PROVIDERS: Visit Provider Obstetrics & Gynecology Gynecology
DX: O03.9 Complete or unspecified spontaneous abortion without complication (principal); Z3A.00 Weeks of gestation of pregnancy not specified
CPT/HCPCS: 36415; 84702

== ENCOUNTER 2021-03-21 11:07 | Emergency (ER) | payer OTHER, SELFPAY ==
[2021-03-21 11:15] VITALS: BP 123/77; PULSE 79; RESP 16; TEMP 36.4; O2SAT 99
--- NOTE | 2021-03-21 11:15 | ED.FEMALEGU ---
HPI - Female Genitourinary General Chief complaint: Urogenital-Female Stated complaint: UTI Time Seen by Provider: 03/21/21 11:15 Source: patient and police Mode of arrival: ambulatory Limitations: no limitations History of Present Illness HPI Narrative: Emily is a 25 year old female patient who ambulated into the [facility]. Pt states she has a two week history of buring, frequency and painful urination. She has been treated with cranberry and Azo. She denies any visible blood in urine. She has a PMH of frequent UTI's and sciatica. She c/o of suprapubic tenderness/pressure. Denies vaginal discharge or any concern for STD's. Denies chance of . States she started a new BCP patch. LMP one week ago. MD elicited complaint: dysuria Related Data Home Medications Medication Instructions Recorded Confirmed levonorgestrel-ethinyl estrad 1 patch TRANSDERMAL WEEKLY 03/21/21 03/21/21 [Twirla] Allergies Allergy/AdvReac Type Severity Reaction Status Date / Time latex Allergy Swelling Verified 03/21/21 11:22 Review of Systems Review of Systems: CONSTITUTIONAL: Denies body aches, fever, chills, or sweats. EYES: Denies visual changes, redness, or discharge. ENT: Denies rhinorrhea, congestion, sore throat, or otalgia. CARDIOVASCULAR: Denies chest pain, palpitations, or edema. RESPIRATORY: Denies cough or dyspnea. GASTROINTESTINAL: Denies abdominal pain, nausea, vomiting, or diarrhea. GENITOURINARY: + dysuria, + frequency, SKIN: Denies rash, itching, or wounds. MUSCULOSKELETAL: + low back pain, joint pain, or myalgia. NEUROLOGIC: Denies headache, numbness, tingling, or weakness. PSYCH: Denies depression or anxiety. All systems reviewed & are unremarkable except as noted in HPI and below PMFSH Past Medical History Medical History Ectopic Endometriosis Surgical History Surgical History H/O unilateral oophorectomy No pertinent past surgical history Social History Social History Smoking status: Never smoker Substance use: never Gender identity (if verbalized by the patient): Female Comments At time of signature, I have reviewed and agree with nursing past medical, surgical, social and family history unless otherwise noted. Please see nursing chart for further information. There is no relevant family history pertinent to the presenting complaint Exam Narrative: GENERAL: Well-appearing, well-nourished, and in no acute distress. HEAD: Normocephalic, atraumatic. EYES: EOMI. No redness or drainage. Conjunctivae normal. ENT: Mucous membranes pink and moist. Nares clear. No rhinorrhea. NECK: Normal AROM. Supple. No lymphadenopathy. CHEST: No respiratory distress. Clear to auscultation. ABDOMEN: Soft, nontender, nondistended,; suprapubic tenderness with palpation MUSCULOSKELETAL: No bony tenderness; no pain with palpation; negative for CVA tenderness bilaterally EXTREMITIES: Normal range of motion. No edema. SKIN: Warm, dry, no rash. Capillary refill normal. Normal skin turgor. NEURO: No focal deficits. Alert and oriented x3. Gait steady. PSYCH: Normal affect. No signs of depression or anxiety. Course Vital Signs Vital signs: Reviewed.. MDM - Female Genitourinary MDM Narrative Medical decision making narrative: Patient's urinalysis was negative. Patient informed to continue Azo for total of 4 days. Patient informed we will call her with the culture results in 3 days. Antibiotics may be prescribed at that time if there is bacteria in the culture. Patient instructed to increase her fluids and follow-up with her [employer] for continued issues. Differential Diagnosis Differential diagnosis: Likely urinary tract infection, vaginitis, cystitis and other (dysuria) Lab Data Attestation: I reviewed the patient's lab resu
[2021-03-21 11:24] VITALS: BP 123/77; PULSE 79; RESP 16; TEMP 36.4; O2SAT 99
== END 2021-03-21 11:42 | disposition home or self-care (01) ==
PROVIDERS: Emergency Provider Nurse Practitioner Family
DX: R30.0 Dysuria (principal); N80.9 Endometriosis, unspecified
CPT/HCPCS: 81003; 87086; 87088; 99213; G0463

== ENCOUNTER 2021-04-01 11:25 | Emergency (ER) | payer OTHER, SELFPAY ==
--- NOTE | 2021-04-01 11:36 | ED.URI ---
HPI - URI/Sore Throat General Chief Complaint: Upper Respiratory Infection Stated Complaint: sore throat Time Seen by Provider: 04/01/21 11:36 Source: patient and RN notes reviewed History of Present Illness HPI Narrative: Patient is a 25-year-old female who presents the urgent care with complaints of a sore throat since last night. Patient states she is also had pain in her ears and a runny nose for the last 2 days. Patient has not taken anything [id number] for her symptoms. Patient has not had a Covid vaccine. Denies of any known exposure to Covid or strep. Denies of fever, chills, nausea, vomiting. No other acute complaints. No acute distress noted. Patient read the plan of care. Some parts of this dictation were generated by voice recognition software and may contain typographical and/or grammatical inaccuracies. Related Data Home Medications Medication Instructions Recorded Confirmed norgestimate-ethinyl estradiol 0.25 tablet PO DAILY 04/01/21 04/01/21 [Sprintec (28)] Allergies Allergy/AdvReac Type Severity Reaction Status Date / Time latex Allergy Swelling Verified 03/21/21 11:22 Review of Systems Review of Systems: CONSTITUTIONAL: Denies fever, chills, or sweats. EYES: Denies visual changes, redness, or discharge. ENT: Reports bilateral otalgia, rhinorrhea and sore throat CARDIOVASCULAR: Denies chest pain, palpitations, or edema. RESPIRATORY: Denies cough or dyspnea. GASTROINTESTINAL: Denies abdominal pain, nausea, vomiting, or diarrhea. GENITOURINARY: Denies dysuria or hematuria. SKIN: Denies rash or itching. MUSCULOSKELETAL: Denies back pain, joint pain, or myalgia. NEUROLOGIC: Denies headache, numbness, or weakness. All other systems reviewed are negative, except as documented in HPI. [facility] Past Medical History Medical History Ectopic Endometriosis Surgical History Surgical History H/O unilateral oophorectomy No pertinent past surgical history Social History Social History Smoking status: Never smoker Substance use: never Gender identity (if verbalized by the patient): Female Comments At the time of my signature, I reviewed and agree with the nursing past medical, surgical, social, and family history. There is no relevant family history pertinent to the patient complaint. Exam Narrative: GENERAL: This is a well-nourished, well-developed patient, in no apparent distress. HEAD: normocephalic, atraumatic. EYES: PERRL. Sclera clear/white. Vision is grossly intact. EARS: External ears normal, auditory canals clear and without drainage, mild fluid noted behind bilateral TMs without otitis. TMs normal without perforation. Hearing grossly intact. NOSE: External nose normal with no obvious nasal discharge, nares without redness, clear rhinorrhea. THROAT: Mucous membranes moist, posterior pharynx clear. Mild postnasal drainage NECK: Neck supple CARDIOVASCULAR: Regular rate and rhythm without murmurs, gallops, or rubs. RESPIRATORY: Clear to auscultation. Breath sounds equal bilaterally. No wheezes, rales, or rhonchi. SKIN: warm, intact with no suspicious lesions or rash, good texture and turgor. NEURO: awake, alert, and oriented to person, place and time. There were no obvious focal neurologic abnormalities. EXTREMITIES: No clubbing, cyanosis, or edema. Course Vital Signs Vital signs: Vital Signs Temperature 97.4 F L 04/01/21 11:46 Pulse Rate 90 04/01/21 11:46 Respiratory Rate 18 04/01/21 11:46 Blood Pressure 123/82 04/01/21 11:46 Pulse Oximetry 100 04/01/21 11:46 Temperature 97.4 F L 04/01/21 11:46 Pulse Rate 90 04/01/21 11:46 Respiratory Rate 18 04/01/21 11:46 Blood Pressure 123/82 04/01/21 11:46 Pulse Oximetry 100 04/01/21 11:46 Reviewed MDM - URI/Sore Throat MDM N
[2021-04-01 11:46] VITALS: BP 123/82; PULSE 90; RESP 18; TEMP 36.3; O2SAT 100
== END 2021-04-01 12:08 | disposition home or self-care (01) ==
PROVIDERS: Emergency Provider Nurse Practitioner Family
DX: J02.9 Acute pharyngitis, unspecified (principal); N80.9 Endometriosis, unspecified
CPT/HCPCS: 87081; 87880; 99213; G0463

== ENCOUNTER 2021-08-07 15:49 | Emergency (ER) | payer OTHER, SELFPAY ==
--- NOTE | ~2021-08-07 | XR_ITS ---
EXAMINATION: XR lumbar spine 2-3V, [id number] DATE: 08/07/2021 16:39 INDICATION: Right posterolateral back pain TECHNIQUE: 1. AP view of the chest and 3 views of the right ribs were obtained. 2. Anteroposterior and lateral views of the lumbar spine, and cone-down lateral view of the lumbosacr al junction were obtained. COMPARISON: None. FINDINGS: Chest and right ribs: 13 bilateral paired ribs. No rib fractures. Mild biapical pleural-parenchymal scarring. Lungs otherwi se clear with no focal airspace opacities, pulmonary edema, pleural effusion or pneumothorax. Normal alignment of the thoracic spine with normal vertebral body and disc heights throughout. Lumbar spine: Alignment is normal. Vertebral body heights are normal. No fractures. Disc heights are normal with ve ry small anterior endplate osteophytes at L1-L2 through L3-L4. Minimal to mild lumbar facet osteoarth ritis. Sacral arches are intact. Bilateral hip and sacroiliac joint spaces are normal. IMPRESSION: 1. No rib fracture or acute cardiopulmonary disease. 2. Minimal lumbar spondylosis. Reviewed, dictated and finalized at location A. IMPRESSION: 1. No rib fracture or acute cardiopulmonary disease. 2. Minimal lumbar spondylosis.
[2021-08-07 15:56] VITALS: BP 137/87; PULSE 80; RESP 20; TEMP 36.9; O2SAT 100
[2021-08-07 16:07] VITALS: BP 137/87; PULSE 80; RESP 20; TEMP 36.9; O2SAT 100
--- NOTE | 2021-08-07 18:46 | ED.GENADULT ---
HPI - General Adult General Chief complaint: Extremity Injury, Lower Stated complaint: Pain in Legs Time Seen by Provider: 08/07/21 16:25 Source: patient Mode of arrival: ambulatory Limitations: no limitations History of Present Illness HPI narrative: 26-year-old female presents with complaint of low back pain for several weeks. States that sometimes she has intermittent pain down both legs. Right now has no back pain. 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 She denies numbness tingling to lower extremities, no loss of bowel or bladder, no saddle anesthesia. She also reports lipoma to the right side of mid back for several years. Was told that it was a lipoma and to watch. Patient has had no imaging of lipoma, does not have a primary care doctor. All systems reviewed and negative except as noted above. Related Data Home Medications Medication Instructions Recorded Confirmed medroxyprogesterone 150 mg IM [id number] 08/07/21 08/07/21 Allergies Allergy/AdvReac Type Severity Reaction Status Date / Time latex Allergy Swelling Verified 08/07/21 16:06 Review of Systems Review of Systems: CONSTITUTIONAL: Denies fever, chills, or sweats. EYES: Denies visual changes, redness, or discharge. ENT: Denies rhinorrhea, congestion, sore throat, or otalgia. CARDIOVASCULAR: Denies chest pain, palpitations, or edema. RESPIRATORY: Denies cough or dyspnea. GASTROINTESTINAL: Denies abdominal pain, nausea, vomiting, or diarrhea. GENITOURINARY: Denies dysuria or hematuria. SKIN: Denies rash or itching. MUSCULOSKELETAL: Reports low back pain back pain. Denies joint pain, or myalgia. NEUROLOGIC: Denies headache, numbness, or weakness. PSYCHIATRIC: Denies anxiety or depression. All other systems reviewed are negative, except as documented in HPI. [facility] Past Medical History Medical History Ectopic Endometriosis Surgical History Surgical History H/O unilateral oophorectomy No pertinent past surgical history Social History Social History Smoking status: Never smoker Substance use: never Gender identity (if verbalized by the patient): Female Comments At time of signature, agree with nursing past medical, surgical, social and family history. There is no relevant family history pertinent to the presenting complaint. Exam Narrative: GENERAL: This is a well-nourished, well-developed patient, in no apparent distress. HEAD: normocephalic, atraumatic. EYES: PERRL. Sclera clear/white. Vision is grossly intact. EARS: External ears normal, auditory canals clear and without drainage, TMs normal without perforation. Hearing grossly intact. NOSE: External nose normal with no obvious nasal discharge, nares without redness, no rhinorrhea. THROAT: Mucous membranes moist, posterior pharynx clear. NECK: Neck supple, non-tender without lymphadenopathy, masses or thyromegaly. CARDIOVASCULAR: Regular rate and rhythm without murmurs, gallops, or rubs. RESPIRATORY: Clear to auscultation. Breath sounds equal bilaterally. No wheezes, rales, or rhonchi. GASTROINTESTINAL: Abdomen soft, non-tender, nondistended. Bowel sounds are active. No hepato-splenomegaly, or palpable masses. No guarding. SKIN: warm, Dry, intact with no suspicious lesions or rash, good texture and turgor. Lipoma to right side mid back, approximately 8 cm x 4 cm. NEURO: awake, alert, and oriented to person, place and time. There were no obvious focal neurologic abnormalities. EXTREMITIES: No joint tenderness, effusion, or edema noted. No calf tenderness. Negative Homans sign bilaterally. BACK: Muscular tenderness both sides low back. No midline tenderness. Range of motion is normal. No CVA tenderness. Course Course Level of Care: Express Care Visit Vital Signs Vital signs: Vital Signs Temperature
== END 2021-08-07 16:57 | disposition home or self-care (01) ==
PROVIDERS: Emergency Provider Nurse Practitioner Family
DX: S39.012A Strain of muscle, fascia and tendon of lower back, initial encounter (principal); X58.XXXA Exposure to other specified factors, initial encounter; D17.1 Benign lipomatous neoplasm of skin and subcutaneous tissue of trunk; N80.9 Endometriosis, unspecified
CPT/HCPCS: 71101; 72100; 99214; G0463

== ENCOUNTER 2021-09-14 10:05 | Emergency (ER) | payer OTHER, SELFPAY ==
--- NOTE | 2021-09-14 10:08 | ED.URI ---
HPI - URI/Sore Throat General Chief Complaint: Upper Respiratory Infection Stated Complaint: Chest Congestion/Congestion Time Seen by Provider: 09/14/21 10:05 Source: patient and RN notes reviewed History of Present Illness HPI Narrative: Patient is a 26-year-old female who presents the urgent care with complaints of chest congestion, cough and nasal congestion. Patient states it started approximately 2 days ago. Denies of any fever, nausea or vomiting. States that she has been taking Zyrtec and DayQuil. Denies of any ill contacts. No other acute complaints. No acute distress noted. Patient aware of the plan of care. Some parts of this dictation were generated by voice recognition software and may contain typographical and/or grammatical inaccuracies. Related Data Home Medications Medication Instructions Recorded Confirmed medroxyprogesterone 150 mg IM [id number] 08/07/21 08/07/21 levonorgestrel-ethinyl estrad 1 patch TRANSDERMAL 09/14/21 [Twirla] Allergies Allergy/AdvReac Type Severity Reaction Status Date / Time latex Allergy Swelling Verified 09/14/21 10:10 Review of Systems Review of Systems: CONSTITUTIONAL: Denies fever, chills, or sweats. EYES: Denies visual changes, redness, or discharge. ENT: Denies rhinorrhea, sore throat, or otalgia. Reports of nasal congestion and rhinorrhea CARDIOVASCULAR: Denies chest pain, palpitations, or edema. RESPIRATORY: Reports a productive cough and chest congestion GASTROINTESTINAL: Denies abdominal pain, nausea, vomiting, or diarrhea. GENITOURINARY: Denies dysuria or hematuria. SKIN: Denies rash or itching. MUSCULOSKELETAL: Denies back pain, joint pain, or myalgia. NEUROLOGIC: Denies headache, numbness, or weakness. All other systems reviewed are negative, except as documented in HPI. [facility] Past Medical History Medical History Ectopic Endometriosis Surgical History Surgical History H/O unilateral oophorectomy No pertinent past surgical history Social History Social History Smoking status: Never smoker Substance use: never Gender identity (if verbalized by the patient): Female Comments At the time of my signature, I reviewed and agree with the nursing past medical, surgical, social, and family history. There is no relevant family history pertinent to the patient complaint. Exam Narrative: GENERAL: This is a well-nourished, well-developed patient, in no apparent distress. HEAD: normocephalic, atraumatic. EYES: PERRL. Sclera clear/white. Vision is grossly intact. EARS: External ears normal, auditory canals clear and without drainage, TMs normal without perforation. Hearing grossly intact. NOSE: External nose normal with no obvious nasal discharge, bilateral erythemic nares with yellow rhinorrhea. THROAT: Mucous membranes moist, posterior pharynx clear. Moderate postnasal drainage NECK: Neck supple CARDIOVASCULAR: Regular rate and rhythm without murmurs, gallops, or rubs. RESPIRATORY: Clear to auscultation. Breath sounds equal bilaterally. No wheezes, rales, or rhonchi. SKIN: warm, intact with no suspicious lesions or rash, good texture and turgor. NEURO: awake, alert, and oriented to person, place and time. There were no obvious focal neurologic abnormalities. EXTREMITIES: No clubbing, cyanosis, or edema. Course Course Level of Care: Express Care Visit Vital Signs Vital signs: Vital Signs Temperature 98 F 09/14/21 10:09 Pulse Rate 90 09/14/21 10:09 Respiratory Rate 14 09/14/21 10:09 Blood Pressure 121/61 09/14/21 10:09 Pulse Oximetry 99 09/14/21 10:09 Temperature 98 F 09/14/21 10:09 Pulse Rate 90 09/14/21 10:09 Respiratory Rate 14 09/14/21 10:09 Blood Pressure 121/61 09/14/21 10:09 Pulse Oximetry 99 09/14/21 10:09 Reviewed [facility] - URI/S
[2021-09-14 10:09] VITALS: BP 121/61; PULSE 90; RESP 14; TEMP 36.6; O2SAT 99
== END 2021-09-14 10:35 | disposition home or self-care (01) ==
PROVIDERS: Emergency Provider Nurse Practitioner Family
DX: J00 Acute nasopharyngitis [common cold] (principal); N80.9 Endometriosis, unspecified
CPT/HCPCS: 99211; G0463

== ENCOUNTER 2022-01-09 02:33 | Day surgery (SDC) | payer OTHER, SELFPAY ==
[2022-01-06 11:11] VITALS: BMI 27.4
--- NOTE | 2022-01-06 11:18 | PC.NURSE ---
Report to the Outpatient Waiting Room, entrance under the green pavilion located off [facility], at time _0600_ on date __01/09/22 . OR Time: . - You and your visitor will be asked to self-screen and do not enter if you have any COVID symptoms. - Only one visitor and NO children visitors are allowed at this time. - The patient visitor is requested to leave or wait in car when not with patient due to restrictions. - A mask is required within the hospital. Patients may have clear liquids (water, carbonated beverages, clear teas, apple juice) until 3 hours prior to surgery (0430 AM) with a maximum of 20 ounces. - No food from midnight until time of surgery - Infants may have breast milk until 4 hours before surgery, infant formula 6 hours prior to surgery. - Children will be allowed to drink immediately following surgery. If applicable, please bring a bottle or sippy cup to assist with drinking. Juice, water, soda, and popsicles are readily available. For infants on formula, please bring formula the day of surgery. Pacifiers are allowed. Take the following medications with a SIP of water the morning of surgery: N/A Medications to discontinue per physician N/A Date to take last dose Please no make-up, nail salvadorean, hairspray, perfume, deodorant, or body powder the day of surgery. No jewelry (including any body piercings) or valuables the day of surgery, leave them at home. Please take a shower or bath the night before, or the morning of, surgery with an antibacterial soap. Wear comfortable, loose fitting clothing. Children are encouraged to wear pajamas. - Jewelry must be removed prior to entering the operating room. Rings and piercings that are not removed may be cut off. - The hospital will not accept responsibility for valuables. - Please leave all valuables, including medications, at home the day of surgery. If you are going home after surgery, a licensed regional company hazmat tanker driver must drive you home. - NO public transportation without another adult. - We recommend that an adult stay with you for 24 hours following discharge. - We also recommend that you do not drive, make important decision, drink alcoholic beverages, or take any drugs that were not prescribed by your health care provider for at least 24 hours after your discharge time. For Pediatric surgeries, we recommend two adults accompany the child home (only one inside the building at this time). Follow any additional instructions given to you from your surgeon. If you or anyone in your household have experienced Covid symptoms in the past week, please notify your surgeon or the nurse liaison at the phone number below for possible testing. Telephone instructions given to ___PT and asked if any additional questions and then verbalized understanding. Patient advised to call surgeon office or pre surgery nurse liaison [phone] if any additional questions.
[2022-01-09] VITALS (7 sets, daily range): BP systolic 109–125; BP diastolic 67–82; PULSE 65–100; RESP 12–20; TEMP 36.4–37; O2SAT 98–100
[2022-01-09] MEDS: ACETAMINOPHEN 500 MG TABLET 1000 MG PO (06:40)
[2022-01-09] MEDS: SCOPOLAMINE 1.5 MG PATCH TRANSDERM (06:40)
[2022-01-09] MEDS: KETOROLAC 15 MG/ML VIAL (*BKC) IV PUSH (06:40)
[2022-01-09] MEDS: LACTATED RINGERS 1,000 ML 30 ML IV CONT ×2 (06:45→08:46)
--- NOTE | 2022-01-09 07:00 | P.PNAN_ITS ---
Anes - Initial Pre Proc Eval Procedure: Operation Date: 01/09/22 07:30 Proposed Procedures p Laparoscopic Right Salpingectomy, - Jackie Augustine MD s Possible Laparoscopic Right Tubal Sterilization with Fallopian Ring - Jackie Augustine MD Date/Time: 01/09/22 07:00 Surgeon: Jackie Augustine MD Pre Op Diagnosis: desires sterilization Patient Data Age: 26 Gender: F Height: 1.55 m Weight: 65.9 kg Allergies Allergy/AdvReac Type Severity Reaction Status Date / Time latex Allergy Swelling Verified 01/06/22 11:09 Home Medications Medication Instructions Recorded Confirmed Type medroxyprogesterone 150 mg/mL 150 mg IM [id number] 08/07/21 01/06/22 History intramuscular syringe Patient hx anesthesia problems: none Family hx anesthesia problems: none Results Review: All pre-operative results and documents have been reviewed as part of the pre- operative evaluation. [facility] Past Medical History Medical History (Updated 01/09/22 @ 07:00 by Jose J Lomas MD) Anxiety Ectopic Endometriosis Latex allergy Overweight Surgical History Surgical History (Updated 01/09/22 @ 07:01 by Jose J Lomas MD) H/O hernia repair H/O unilateral oophorectomy Social History Social History Smoking packs per day: 1 Smoking cigarettes per day: 20.0 Years smoked: 8 Smoking pack-years: 8.00 Smoking status: Former smoker Tobacco type: cigarettes Second hand tobacco smoke exposure: No Smoking end date: 06/02/19 Alcohol intake: current Alcohol use details: STATES MAYBE 4 DRINKS A MONTH Substance use: never Substance use type: does not use Living arrangements: with family Gender identity (if verbalized by the patient): Female Spiritual care concerns: No Anes - Eval Final PreProcedure Day of Procedure 01/09/22 07:00 Patient weight: overweight Heart: regular rate and rhythm Lungs: clear to auscultation Airway: Mallampati scale class II Neurological: alert and oriented Last oral intake: >/= 8 hours ASA classification: II Emergent: no Anesthesia type and monitoring: general ETT and standard monitoring Results Review: All pre-operative results and documents have been reviewed as part of the pre- operative evaluation. Informed Consent: The patient's anesthetic plan and its attendant risks and benefits were discussed with the patient/family/POA. Questions were solicited and answers provided to the satisfaction of the patient/family/POA.
[2022-01-09 07:02] LABS: Hematocrit 41.6 % (37.0-47.0); Hemoglobin 13.6 g/dL (12.0-15.0)
--- NOTE | 2022-01-09 07:21 | WPDHPUPDATE1 ---
History and Physical Update Update Date/Time: 01/09/22 07:21 History and Physical has been reviewed, including an updated exam of the patient. There are NO changes in the patient's condition. Risks, benefits, and alternatives have been discussed and questions answered. Patient agrees to proceed with procedure.
--- NOTE | 2022-01-09 07:21 | PM.HPGS ---
History of Present Illness History of Present Illness Consent: Risks, benefits, and alternatives have been discussed and questions answered. Patient agrees to proceed with procedure. Chief complaint: desires sterilization Narrative: Emily Brush is a 26 year old female A4 being admitted for laparoscopic sterilization. Patient has had a previous left salpingectomy and wishes to proceed with a right salpingectomy if possible. If there is extensive adhesions we will proceed with a Falope ring. Patient wishes to have no further pregnancies. Risks of infection, bleeding, and injury to internal organs were discussed. Permanent sterilization and failure rate with increased ectopic if fails were reviewed. Patient voices understanding and agrees to proceed. Review of Systems Review of Systems: not repeated day of surgery; patient states no changes in status PMFSH Past Medical History Medical History (Updated 01/09/22 @ 07:28 by Jackie Augustine MD) Anxiety Bicornuate uterus Depression Eating disorder Anorexia and over exercising 2019 Ectopic Methotrexate and then Left salpingo-oophorectomy 2015 Endometriosis Latex allergy Spontaneous X3 D&C x1 Surgical History Surgical History (Updated 01/09/22 @ 07:27 by Jackie Augustine MD) H/O hernia repair History of D&C History of salpingectomy 2015 left tube Social History Social History Smoking packs per day: 1 Smoking cigarettes per day: 20.0 Years smoked: 8 Smoking pack-years: 8.00 Smoking status: Former smoker Tobacco type: cigarettes Second hand tobacco smoke exposure: No Smoking end date: 06/02/19 Alcohol intake: current Alcohol use details: STATES MAYBE 4 DRINKS A MONTH Substance use: never Substance use type: does not use Living arrangements: with family Gender identity (if verbalized by the patient): Female Spiritual care concerns: No Meds Home Medications and Allergies Home Medications Medication Instructions Recorded Confirmed Type medroxyprogesterone 150 mg/mL 150 mg IM [id number] 08/07/21 01/06/22 History intramuscular syringe Allergies Allergy/AdvReac Type Severity Reaction Status Date / Time latex Allergy Swelling Verified 01/06/22 11:09 Exam Const: General: healthy appearing and alert Orientation/consciousness: patient oriented x3 GI: GI Palp: Yes Soft to palpation, No Tenderness to palpation present (GI) and No Palpable mass present : External Female Exam: normal external appearance Speculum Exam - Vagina: normal appearance of the vagina and normal vaginal discharge Speculum Exam - Cervix: normal appearance of the cervix Bimanual exam- vagina & uterus: uterine size normal and consistency normal Bimanual Exam- Adnexa, other: normal adnexae and No adnexal tenderness Neuro: General: patient oriented x3 Assessment and Plan Assessment and plan (1) Encounter for sterilization: Code(s): Z30.2 - Encounter for sterilization Status: Acute Assessment and Plan: Plan to proceed with laparoscopic right salpingectomy possible Falope ring
--- NOTE | 2022-01-09 08:22 | P.OP_ITS ---
Procedure Note - Detailed Date of Procedure 01/09/22 Pre-op Diagnosis desires sterilization Post-op Diagnosis Same Procedure Performed Laparoscopic right salpingectomy Surgeon Jackie Augustine MD Anesthesia General Findings Absent left fallopian tube, normal-appearing right fallopian tube, uterus, ovaries. Description of Procedure The patient was taken to the operating room and placed under anesthesia in the dorsal lithotomy position. She was prepped and draped in the usual sterile fashion. [place] speculum was placed in the vagina and the cervix grasped on the anterior lip with a tenaculum. The acorn manipulator was placed. Speculum is removed. Attention is turned to the abdomen. A vertical skin incision was made at the base of the umbilicus. The Veress needle was placed and water drop test is normal. Opening patient pressure was 3mmHg. Pneumoperitoneum was obtained to a patient pressure of 15. The Veress needle was removed and the 5mm Optiview trocar was placed while tenting the abdomen with towel clamps Intra- abdominal placement was confirmed laparoscope. The patient was placed in Trendelenburg and an 8mm trocar placed in the midline 2cm above the symphysis pubis under direct visualization. The blunt probe was used to bring the tube into view and inspect the pelvis with the above-stated findings. The right lower quadrant port appears to have a small hernia a scalpel is used to incise the skin. A 5mm port is placed. The tube was grasped with an atraumatic grasper. The LigaSure device is used to cauterize and cut the mesosalpinx. The tube was crossclamped near the cornua. The tube was excised through the right lower quadrant port. Good hemostasis is noted and all instruments are removed. The pneumoperitoneum was reduced. The right lower quadrant port fascia is suture ligated with 0 Vicryl. Skin incisions were closed using 4-0 nylon in an interrupted fashion. Vaginal instruments are removed. needle, and instrument counts are correct per the OR staff. Patient is awakened from anesthesia and taken to recovery in stable condition. Estimated Blood Loss 5 Drains No Packing No Pathology Yes (Right fallopian tube) Complications No immediate complications Condition Stable Disposition PACU
== END 2022-01-09 10:22 | disposition home or self-care (01) ==
PROVIDERS: Anesthesiology; Visit Provider Obstetrics & Gynecology Gynecology
PROC: (CPT 49320; principal; 2022-01-09 07:30)
DX: Z30.2 Encounter for sterilization (principal); F41.9 Anxiety disorder, unspecified; F32.A Depression, unspecified; Q51.3 Bicornate uterus; N80.9 Endometriosis, unspecified; Z87.891 Personal history of nicotine dependence
CPT/HCPCS: 58661; 36415; 85014; 85018; 88302; A9270; J0330; J1100; J1885; J2250; J2405; J2704; J2710; J3010; J7120

== ENCOUNTER 2022-07-07 10:06 | Outpatient (CLI) | payer OTHER, SELFPAY ==
[2022-07-07 11:40] LABS: Free T4 Free Thyroxine 1.12 ng/mL (0.78-2.19); Vitamin D 25 Hydroxy 21.9 ng/mL
[2022-07-11 14:07] LABS: Prolactin 11.9 ng/mL (***)
== END 2022-07-07 10:07 | disposition home or self-care (01) ==
LOC: ANHLAB 10:08
PROVIDERS: Visit Provider Obstetrics & Gynecology Gynecology
DX: N91.2 Amenorrhea, unspecified (principal); Z13.21 Encounter for screening for nutritional disorder
CPT/HCPCS: 36415; 82306; 84146; 84439; 84443

== ENCOUNTER 2022-07-12 10:15 | Outpatient (CLI) | payer OTHER, SELFPAY ==
--- NOTE | ~2022-07-12 | US_ITS ---
EXAMINATION: US pelvic complete DATE: 07/12/2022 10:56 INDICATION: Amenorrhea TECHNIQUE: Multiple transabdominal and endovaginal sonographic images of the pelvis were obtained. COMPARISON: None. FINDINGS: The uterus measures 7.9 x 2.7 x 4.6 cm. The endometrial complex measures 2 mm. The right ov paty measures 4.0 x 2.3 x 2.4 cm. The left ovary measures 3.2 x 3.7 x 2.0 cm. There is normal vascular flow in the ovaries. There is no free fluid in the pelvis. IMPRESSION: 1. No sonographic correlate for the patient's symptoms. Reviewed, dictated and finalized at location B. F [employer]
--- NOTE | ~2022-07-12 | US_ITS ---
US thyroid INDICATION: Enlarged thyroid gland TECHNIQUE: Real-time sonographic images of the thyroid gland were obtained. COMPARISON: No prior studies for comparison. FINDINGS: The right thyroid lobe measures 5 x 1 x 1.3 cm. The left thyroid lobe measures 4.4 x 1 x 1 .1 cm. There is heterogeneous echotexture and echogenicity throughout the thyroid gland. No discrete nodules identified. Normal vascular flow is present. IMPRESSION: 1. Mildly enlarged heterogeneous thyroid gland. No discrete mass. Reviewed, dictated and finalized at location A. ER [employer]
== END 2022-07-12 10:16 | disposition home or self-care (01) ==
PROVIDERS: Visit Provider Obstetrics & Gynecology Gynecology
DX: E04.9 Nontoxic goiter, unspecified (principal)
CPT/HCPCS: 76536; 76856

== ENCOUNTER 2022-08-27 09:25 | Emergency (ER) | payer OTHER, SELFPAY ==
--- NOTE | ~2022-08-27 | XR_ITS ---
EXAMINATION: XR foot RT min 3V DATE: 08/27/2022 09:51 INDICATION: Right foot pain. TECHNIQUE: 4 views of right foot were obtained. COMPARISON: None. FINDINGS: Bone alignment is normal. No fracture. Joint spaces are well maintained. IMPRESSION: 1. Normal right foot. Reviewed, dictated and finalized at location A. IMPRESSION: 1. Normal right foot.
[2022-08-27 09:35] VITALS: BP 108/73; PULSE 76; RESP 18; TEMP 36.6; O2SAT 100
--- NOTE | 2022-08-27 10:02 | ED.GENADULT ---
HPI - General Adult General Chief complaint: Extremity Injury, Lower Stated complaint: right foot pain Time Seen by Provider: 08/27/22 09:30 Source: RN notes reviewed History of Present Illness HPI narrative: Patient presents emergency room from home for right foot pain. Patient states she injured the foot 3 days ago when she smacked it on a wooden door. States that initially had pain in the foot that was improved but then when she started to walk on it she has developed pain in the bases of first and second toe she states she is not taking thing for the pain she denies any numbness or tingling of the extremities Related Data Home Medications Medication Instructions Recorded Confirmed medroxyprogesterone 150 mg/mL 150 mg IM [id number] 08/07/21 01/09/22 intramuscular syringe Allergies Allergy/AdvReac Type Severity Reaction Status Date / Time latex Allergy Swelling Verified 08/27/22 09:35 Review of Systems Review of Systems: Gen.: Denies fevers or chills Musculoskeletal: See HPI Neuro: Denies numbness, tingling, weakness Skin: Denies rash Endo: Denies DM PMFSH Past Medical History Medical History Anxiety Bicornuate uterus Depression Eating disorder Anorexia and over exercising 2019 Ectopic Methotrexate and then Left salpingo-oophorectomy 2015 Endometriosis Latex allergy Spontaneous X3 D&C x1 Surgical History Surgical History (Updated 01/09/22 @ 07:27 by Jackie Augustine MD) H/O hernia repair History of D&C History of salpingectomy 2015 left tube Social History Social History Smoking packs per day: 1 Smoking cigarettes per day: 20.0 Years smoked: 8 Smoking pack-years: 8.00 Smoking status: Former smoker Tobacco type: cigarettes Second hand tobacco smoke exposure: No Smoking end date: 06/02/19 Alcohol intake: current Alcohol use details: STATES MAYBE 4 DRINKS A MONTH Substance use: never Substance use type: does not use Living arrangements: with family Gender identity (if verbalized by the patient): Female Sexual Orientation (if Verbalized by the Patient): Straight or Heterosexual Spiritual care concerns: No Exam Narrative: APPEARANCE: No acute distress, nontoxic, resting in bed Eyes: EOMI HEENT: Normocephalic, atraumatic, RESPIRATORY: No respiratory distress MUSCULOSKELETAl: Tender to palpation over the right foot at the base of the first and second toe over the MTP joint noted ecchymosis noted mild swelling remainder the foot is nontender no tenderness of the ankle dorsalis pedis pulse 2+ neurovascular intact NEURO: Awake and alert. Following commands, speech normal, no focal deficits SKIN:: Warm, dry. Normal Color no rash or lesions Course Course Emergency Course: Discussed with patient results of workup and diagnosis. Discussed need for follow-up with primary care, proper use of medication, and reasons to return to the emergency department. Patient understands and agrees to current treatment plan Vital Signs Vital signs: Vital Signs Temperature 97.8 F 08/27/22 09:35 Pulse Rate 76 08/27/22 09:35 Respiratory Rate 18 08/27/22 09:35 Blood Pressure 108/73 08/27/22 09:35 Pulse Oximetry 100 08/27/22 09:35 Temperature 97.8 F 08/27/22 09:35 Pulse Rate 76 08/27/22 09:35 Respiratory Rate 18 08/27/22 09:35 Blood Pressure 108/73 08/27/22 09:35 Pulse Oximetry 100 08/27/22 09:35 Medical Decision Making MDM Narrative Medical decision making narrative: Patient?s injury is consistent with muscular skeletal etiology. Suspect strain versus contusion x-rays were negative will discharge with postop shoe and follow-up as an outpatient shared medical decision making made with the patient Vital Signs Vital Signs: Vital Signs Temperature 97.8 F 08/27/22 09:35 Pulse Rate 76 08/27/22
[2022-08-27] MEDS: IBUPROFEN 600 MG TABLET PO (10:08)
== END 2022-08-27 10:22 | disposition home or self-care (01) ==
PROVIDERS: Emergency Provider Emergency Medicine
DX: S90.31XA Contusion of right foot, initial encounter (principal); Z87.891 Personal history of nicotine dependence; W22.09XA Striking against other stationary object, initial encounter
CPT/HCPCS: 73630; 99283; A9270

== ENCOUNTER 2022-11-20 04:48 | Emergency (ER) | payer OTHER, SELFPAY ==
[2022-11-20 04:56] VITALS: BP 120/80; PULSE 64; RESP 16; TEMP 36.4; O2SAT 98
[2022-11-20 07:09] LABS: Appearance Urine Clear (Clear); Bacteria Urine None Seen /hpf; Bilirubin Urine Negative (Negative); Blood Urine Negative (Negative); Color Urine Dark Yellow (Yellow); Glucose Urine UA Negative (Negative); Ketones Urine Negative (Negative); Leukocyte Esterase Ur 1+ LEU/UL (Negative); Need Manual Microscopic Reviewed; Nitrate Urine Positive (Negative); Non Pathogenic Casts 0-2; Protein Urine Negative (Negative); RBC Urine 0-2 /hpf (0-2); Specific Grav Ur 1.003 (1.001-1.035); Squamous Epithelial Cell Urine None seen /hpf (Few); WBC Urine 0-5 /hpf
[2022-11-20 07:26] LABS: Urine Pregnancy Test Negative
[2022-11-20 07:27] LABS: Pregnancy On Board Control Positive
--- NOTE | 2022-11-20 07:46 | ED.GENADULT ---
HPI - General Adult General Chief complaint: Urogenital-Female Stated complaint: UTI? Time Seen by Provider: 11/20/22 06:27 History of Present Illness HPI narrative: Patient is a 27-year-old female who presents ER with dysuria and urinary frequency. Began 2 days ago. She has been taking Azo and cranberry pills. She reports irritation around her vagina. No vaginal discharge or vaginal bleeding. No rash around the vagina. She is sexually active only with her . No fevers or chills or sweats. No flank pain. Related Data Home Medications Medication Instructions Recorded Confirmed medroxyprogesterone 150 mg/mL 150 mg IM [id number] 08/07/21 01/09/22 intramuscular syringe Allergies Allergy/AdvReac Type Severity Reaction Status Date / Time latex Allergy Swelling Verified 08/27/22 09:35 Review of Systems Review of Systems: All systems reviewed & are unremarkable except as noted in HPI and below Constitutional: Constitutional: Denies chills, Denies fatigue and Denies fever(s) Gastrointestinal: Gastrointestinal: Denies abdominal pain, Denies nausea and Denies vomiting Genitourinary: Genitourinary: Denies abnormal vaginal bleeding, Denies hematuria, Reports nocturia, Denies genital lesions, Reports dysuria, Denies flank pain and Denies vaginal discharge PMFSH Past Medical History Medical History Anxiety Bicornuate uterus Depression Eating disorder Anorexia and over exercising 2019 Ectopic Methotrexate and then Left salpingo-oophorectomy 2015 Endometriosis Latex allergy Spontaneous X3 D&C x1 Surgical History Surgical History (Updated 01/09/22 @ 07:27 by Jackie Augustine MD) H/O hernia repair History of D&C History of salpingectomy 2015 left tube Social History Social History Smoking packs per day: 1 Smoking cigarettes per day: 20.0 Years smoked: 8 Smoking pack-years: 8.00 Smoking status: Former smoker Tobacco type: cigarettes Second hand tobacco smoke exposure: No Smoking end date: 06/02/19 Alcohol intake: current Alcohol use details: STATES MAYBE 4 DRINKS A MONTH Substance use: never Substance use type: does not use Living arrangements: with family Gender identity (if verbalized by the patient): Female Sexual Orientation (if Verbalized by the Patient): Straight or Heterosexual Spiritual care concerns: No Exam Narrative: GENERAL: Well-appearing, well-nourished, and in no acute distress. HEAD: Normocephalic, atraumatic. ENT: Mucous membranes moist. CHEST: Clear to auscultation. No respiratory distress. HEART: Regular rate and rhythm. Normal peripheral pulses. ABDOMEN: Soft, nontender, nondistended. No CVA tenderness. EXTREMITIES: Normal range of motion. No edema. NEURO: Alert and oriented x3. PSYCH: Normal mood and affect. Course Course Emergency Course: Patient resting comfortably. Discussed urine results. Offered to perform a pelvic exam to rule out potential STI/herpes/fungal infection that may be causing other irritation or discomfort. Patient declines. She would like something for her urinary symptoms as not Azo and she would like antibiotics for home. I will give her 3 days of cephalexin and one-time dose of Ditropan in the ER. Vital Signs Vital signs: Vital Signs Temperature 97.6 F 11/20/22 04:56 Pulse Rate 64 11/20/22 04:56 Respiratory Rate 16 11/20/22 04:56 Blood Pressure 120/80 11/20/22 04:56 Pulse Oximetry 98 11/20/22 04:56 Oxygen Delivery Room Air 11/20/22 04:56 Temperature 97.6 F 11/20/22 04:56 Pulse Rate 64 11/20/22 04:56 Respiratory Rate 16 11/20/22 04:56 Blood Pressure 120/80 11/20/22 04:56 Pulse Oximetry 98 11/20/22 04:56 Oxygen Delivery Room Air 11/20/22 04:56 Medical Decision Making Vital Signs Vital Signs: Vital Signs Te
[2022-11-20] MEDS: oxyBUTYnin CHLORIDE 2.5 MG TAB PO (08:22)
[2022-11-20 08:23] LABS: Add Urine Microscopic? YES
[2022-11-20 08:25] VITALS: BP 117/75; PULSE 60; RESP 14; O2SAT 97
== END 2022-11-20 08:30 | disposition home or self-care (01) ==
PROVIDERS: Emergency Medicine; Emergency Provider Emergency Medicine
DX: R30.0 Dysuria (principal); Z87.891 Personal history of nicotine dependence
CPT/HCPCS: 81001; 81025; 99283; A9270

== ENCOUNTER 2022-12-12 14:50 | Emergency (ER) | payer OTHER, SELFPAY ==
[2022-12-12 15:01] VITALS: BP 125/68; PULSE 60; RESP 16; TEMP 36.2; O2SAT 100
--- NOTE | 2022-12-12 15:48 | ED.EAR ---
HPI - Ear Problem General Chief complaint: Ear Stated complaint: Right Ear Pain Time Seen by Provider: 12/12/22 15:44 Source: patient and RN notes reviewed Mode of arrival: ambulatory Limitations: no limitations History of Present Illness HPI Narrative: 27 year old female presents with concern for right ear pain, jaw pain, gum sensitivity. She reports symptoms started about a week and a half ago. She reports 1 episode of watery drainage from the ear. She denies nasal congestion, rhinorrhea, sore throat, fever, aches, chills, sweats. MD Complaint: ear pain Location: right ear Related Data Allergies Allergy/AdvReac Type Severity Reaction Status Date / Time latex Allergy Swelling Verified 08/27/22 09:35 Review of Systems Review of Systems: CONSTITUTIONAL: Denies malaise, chills, sweats, or fever. EYES: Denies visual changes, redness, or discharge. ENT: Denies rhinorrhea, congestion, sinus pain, and sore throat. Reports right ear pain, jaw pain. Reports gingival irritation CARDIOVASCULAR: Denies chest pain, palpitations, or edema. RESPIRATORY: Denies cough. Denies dyspnea. GASTROINTESTINAL: Denies abdominal pain, nausea, vomiting, diarrhea SKIN: Denies rash or itching. MUSCULOSKELETAL: Denies myalgia. NEUROLOGIC: Denies headache. All systems reviewed & are unremarkable except as noted in HPI and below PMFSH Past Medical History Medical History Anxiety Bicornuate uterus Depression Eating disorder Anorexia and over exercising 2019 Ectopic Methotrexate and then Left salpingo-oophorectomy 2015 Endometriosis Latex allergy Spontaneous X3 D&C x1 Surgical History Surgical History (Updated 01/09/22 @ 07:27 by Jackie Augustine MD) H/O hernia repair History of D&C History of salpingectomy 2015 left tube Social History Social History Smoking packs per day: 1 Smoking cigarettes per day: 20.0 Years smoked: 8 Smoking pack-years: 8.00 Smoking status: Former smoker Tobacco type: cigarettes Second hand tobacco smoke exposure: No Smoking end date: 06/02/19 Alcohol intake: current Alcohol use details: STATES MAYBE 4 DRINKS A MONTH Substance use: never Substance use type: does not use Living arrangements: with family Gender identity (if verbalized by the patient): Female Sexual Orientation (if Verbalized by the Patient): Straight or Heterosexual Spiritual care concerns: No Comments At time of signature, agree with nursing past medical, surgical, social and family history. There is no relevant family history pertinent to the presenting complaint Exam Narrative: GENERAL: Well-appearing, well-nourished, and in no acute distress. HEAD: Normocephalic EYES: PERRLA, conjunctivae clear ENT: Nares clear. Mucous membranes moist. TM pearly pedersen with sharp light reflex bilaterally; no tragal tenderness. Oropharynx not erythematous without lesions. Tonsils not enlarged and without exudate, no drooling, no hoarseness, no trismus, uvula midline. Gingival erythema and edema noted surrounding teeth 29, 30. Mild tenderness to the right jaw without swelling NECK: Supple. No lymphadenopathy CHEST: Clear to auscultation, breath sounds equal. No wheezing, rhonchi, rales, or stridor. No respiratory distress, speaks in full sentences. HEART: Regular rate and rhythm. No murmur heard. SKIN: Warm, dry, no rash. NEURO: Alert and oriented x3. PSYCH: Normal mood and affect Course Course Emergency Course: Patient is aware of diagnosis, understands and agrees to treatment plan. Anticipatory guidance given. Patient agrees to follow-up as directed and is aware of reasons to seek care at the emergency department. Portions of this record may have been created with voice recognition software Level of Care: Express Care Visit Vital Signs Vital signs: Vital Signs Tem
== END 2022-12-12 15:58 | disposition home or self-care (01) ==
PROVIDERS: Emergency Provider Nurse Practitioner
DX: K08.89 Other specified disorders of teeth and supporting structures (principal); Z87.891 Personal history of nicotine dependence; N80.9 Endometriosis, unspecified
CPT/HCPCS: 99213; G0463

== ENCOUNTER 2022-12-30 19:21 | Emergency (ER) | payer OTHER, SELFPAY ==
[2022-12-30 19:25] VITALS: BP 123/65; PULSE 70; RESP 18; TEMP 36.4; O2SAT 99
--- NOTE | 2022-12-30 19:30 | ED.SKABFB ---
HPI - Skin/Abscess/Foreign Bdy General Chief complaint: Skin/Abscess/Foreign Body Stated complaint: Skin Sore Time Seen by Provider: 12/30/22 19:23 History of Present Illness HPI narrative: patient presents with red raised area to left side of neck. no drainage from the area no drainage Related Data Home Medications Medication Instructions Recorded Confirmed No Home Medications 12/30/22 12/30/22 Allergies Allergy/AdvReac Type Severity Reaction Status Date / Time latex Allergy Swelling Verified 12/30/22 19:29 Review of Systems Review of Systems: CONSTITUTIONAL: Denies fever, chills, or sweats. EYES: Denies visual changes, redness, or discharge. ENT: Denies rhinorrhea, congestion, sore throat, or otalgia. CARDIOVASCULAR: Denies chest pain, palpitations, or edema. RESPIRATORY: Denies cough or dyspnea. GASTROINTESTINAL: Denies abdominal pain, nausea, vomiting, or diarrhea. GENITOURINARY: Denies dysuria or hematuria. SKIN: Denies rash or itching. MUSCULOSKELETAL: Denies back pain, joint pain, or myalgia. NEUROLOGIC: Denies headache, numbness, or weakness. PSYCHIATRIC: Denies anxiety or depression. [facility] Past Medical History Medical History Anxiety Bicornuate uterus Depression Eating disorder Anorexia and over exercising 2019 Ectopic Methotrexate and then Left salpingo-oophorectomy 2015 Endometriosis Latex allergy Spontaneous X3 D&C x1 Surgical History Surgical History (Updated 01/09/22 @ 07:27 by Jackie Augustine MD) H/O hernia repair History of D&C History of salpingectomy 2015 left tube Social History Social History Smoking packs per day: 1 Smoking cigarettes per day: 20.0 Years smoked: 8 Smoking pack-years: 8.00 Smoking status: Former smoker Tobacco type: cigarettes Second hand tobacco smoke exposure: No Smoking end date: 06/02/19 Alcohol intake: current Alcohol use details: STATES MAYBE 4 DRINKS A MONTH Substance use: never Substance use type: does not use Living arrangements: with family Gender identity (if verbalized by the patient): Female Sexual Orientation (if Verbalized by the Patient): Straight or Heterosexual Spiritual care concerns: No Comments At time of signature, agree with nursing past medical, surgical, social and family history. There is no relevant family history pertinent to the presenting complaint Exam Narrative: GENERAL: Well-appearing, well-nourished, and in no acute distress. HEAD: Normocephalic, atraumatic. EYES: PERRLA and EOMI. ENT: Nares clear, no rhinorrhea or epistaxis. Mucous membranes moist. NECK: Supple. CHEST: Clear to auscultation. No respiratory distress. HEART: Regular rate and rhythm. No murmur heard. Normal peripheral pulses. ABDOMEN: Soft, nontender, nondistended, normal active bowel sounds. EXTREMITIES: Normal range of motion. No edema. SKIN: Warm, dry, no rash. .025 merida angioma to right side of neck no concern for infection NEURO: No focal deficits. Alert and oriented x3. Kelsie Coma Scale Eye Opening: Spontaneous 4 Kelsie Coma Scale Motor: Obeys Commands 6 [place] Coma Scale Verbal: Oriented 5 Kelsie Coma Scale Total 15 Course Course Level of Care: Express Care Visit Vital Signs Vital signs: discussed merida angioma with patient discussed need to follow up with PCP to have area evaluated and or possibly removed and sent for pathology. discussed red flags and s/s to monitor for. Discharge Plan Discharge Clinical Impression: Merida angioma Patient Disposition: Home, Self-Care Condition: Stable Additional Instructions: Follow-up with primary care provider for removal of Tiffani angioma Do not pick or irritated area Worse with warm soapy water. Prescriptions: No Action No Home Medications Follow-up/Referrals: UNKNOWN
== END 2022-12-30 19:35 | disposition home or self-care (01) ==
PROVIDERS: Emergency Provider Nurse Practitioner Family
DX: D18.01 Hemangioma of skin and subcutaneous tissue (principal); Z87.891 Personal history of nicotine dependence; N80.9 Endometriosis, unspecified
CPT/HCPCS: 99211; G0463

== ENCOUNTER 2023-01-30 11:59 | Emergency (ER) | payer OTHER, SELFPAY ==
[2023-01-30 12:04] VITALS: BP 129/90; PULSE 64; RESP 20; TEMP 36.5; O2SAT 100
--- NOTE | 2023-01-30 13:18 | ED.URI ---
HPI - URI/Sore Throat General Chief Complaint: Upper Respiratory Infection Stated Complaint: needs check to go back to work Time Seen by Provider: 01/30/23 13:05 Source: patient, RN notes reviewed and old records reviewed Mode of arrival: ambulatory Limitations: no limitations History of Present Illness HPI Narrative: 27 year old female presents to [facility] care with complaints of 2 day history of sore throat, nasal congestion and drainage, body aches and cold sweats.Patient reports that she has not had a known fever and does feel better today but needs checked before she can return to work. Patient requesting COVID test. MD elicited complaint: sore throat, rhinorrhea, nasal congestion and other (body aches) Onset (ago): day(s) (2) Description of mucous: clear Able to tolerate fluids by mouth: Yes Treatments prior to arrival: none Related Data Home Medications Medication Instructions Recorded Confirmed No Home Medications 12/30/22 12/30/22 Allergies Allergy/AdvReac Type Severity Reaction Status Date / Time latex Allergy Swelling Verified 12/30/22 19:29 Review of Systems Review of Systems: CONSTITUTIONAL: Denies malaise, states chills, sweats, unknown if fevers EYES: Denies visual changes, redness, or discharge. ENT: Reports rhinorrhea, congestion,no sinus pain, no otalgia, scratchy sore throat. CARDIOVASCULAR: Denies chest pain, palpitations, or edema. RESPIRATORY: Reports no cough.? Denies dyspnea. GASTROINTESTINAL: Denies abdominal pain, nausea, vomiting, diarrhea SKIN: Denies rash or itching. MUSCULOSKELETAL: reports some myalgia. NEUROLOGIC: Denies headache. All systems reviewed & are unremarkable except as noted in HPI and below PMFSH Past Medical History Medical History Anxiety Bicornuate uterus Depression Eating disorder Anorexia and over exercising 2019 Ectopic Methotrexate and then Left salpingo-oophorectomy 2015 Endometriosis Latex allergy Spontaneous X3 D&C x1 Surgical History Surgical History H/O hernia repair History of D&C History of salpingectomy 2015 left tube Social History Social History Smoking packs per day: 1 Smoking cigarettes per day: 20.0 Years smoked: 8 Smoking pack-years: 8.00 Smoking status: Former smoker Tobacco type: cigarettes Second hand tobacco smoke exposure: No Smoking end date: 06/02/19 Alcohol intake: current Alcohol use details: STATES MAYBE 4 DRINKS A MONTH Substance use: never Substance use type: does not use Living arrangements: with family Gender identity (if verbalized by the patient): Female Sexual Orientation (if Verbalized by the Patient): Straight or Heterosexual Spiritual care concerns: No Comments At time of signature, agree with nursing past medical, surgical, social and family history. There is no relevant family history pertinent to the presenting complaint Exam Narrative: GENERAL: Well-appearing, well-nourished, and in no acute distress. HEAD: Normocephalic EYES: PERRLA, conjunctivae clear ENT: Nares clear, turbinates edematous and erythematous, clear discharge. Mucous membranes moist. TM pearly pedersen with dull light reflex bilaterally; no tragal tenderness. Oropharynx erythematous without lesions. Tonsils not enlarged and without exudate, no drooling, no hoarseness, no trismus, uvula midline.post nasal drainage NECK: Supple. No lymphadenopathy CHEST: Clear to auscultation, breath sounds equal. No wheezing, rhonchi, rales, or stridor. No respiratory distress, speaks in full sentences.no cough SAO2 100% on room air HEART: Regular rate and rhythm. No murmur heard. SKIN: Warm, dry, no rash. NEURO: Alert and oriented x3. PSYCH: Normal mood and affect Course Course Emergency Course:
== END 2023-01-30 13:29 | disposition home or self-care (01) ==
PROVIDERS: Emergency Provider Registered Nurse
DX: J06.9 Acute upper respiratory infection, unspecified (principal); Z87.891 Personal history of nicotine dependence; Z20.822 Contact with and (suspected) exposure to COVID-19
CPT/HCPCS: 87426; 99213; C9803; G0463